=== PATIENT | female | born 1950 | race African-American/Black ===

== ENCOUNTER → 2017-01-10 | Outpatient (CLI) | payer OTHER ==
[~2017-01-10] MED LIST: ACEBUTOLOL HCL200 MG PO; ACIDOPHILUS1 EAC2 PO; ADULT LOW DOSE81 MG PO; ADULT ONE DAI200 MCG PO; ALDACTONE25 MG PO; ALLERGY CREAM30 G1 TP; ALPRAZOLAM 0.50.5 M1 PO; ALVESCO6.1; ALVESCO6.1 INH; AMARYL1 MG PO; AMARYL2 MG PO; AMITIZA 24 MCG24 MC1 PO; AMITRIPTYLINE H10 M1 PO; AMITRIPTYLINE H25 M2 PO; ANTIVERT25 MG PO; APAP500 PO; ATORVASTATIN CA80 MG PO; AZITHROMYCIN 2250 MG PO; BACLOFEN 10MG T10 M1 PO; BACTRIM DS TAB1 EACH PO; BENADRYL25 MG PO; BUTORPHANOLNS NASAL; CELEXA40 MG PO; CIPRO250 MG PO; CIPROFLOXACIN500 M1 PO; CIPROFLOXACIN500 M3 PO; CITRATE OF MAG296 ML PO; CLARITIN10 M2 PO; COCONUT OIL1000 MG PO; COLACE 100 MG100 MG; COLACE 100 MG100 MG PO; COLACE100 MG PO; COMPAZINE10 MG PO; CYMBALTA60 MG; CYMBALTA60 MG PO; DAZIDOX10 MG PO; DIGESTIVE ENZY1 EAC3 PO; DILAUDID2 M1 PO; DOMPERIDONE; DOMPERIDONE PO; DOXYCYCLINE 10100 M1 PO; DOXYCYCLINE 10100 MG; EFFIENT10 MG PO; ENDOCET 10-3251 EACH PO; ENDOCET 7.5-501 EACH PO; ENDUR-ACIN250 MG PO; ERYPED 200200 MG/51 PO; ERYTHROMYCIN250 MG PO; ESCITALOPRAM OX10 MG PO; FIBER LAX625 MG PO; FIBER0.52 GM PO; FLAGYL 250 MG250 MG PO; FLAGYL500 M1 PO; FLAGYL500 MG PO; FLEXERIL; FLEXERIL PO; FLONASE 0.05%50 MCG; FLONASE 0.05%50 MCG NASAL; FLORINEF ACETA0.1 MG PO; FUROSEMIDE 20 M20 M1 PO; GRALISE600 MG PO; HUMULIN N100 UNIT/3; HYDROCHLOROTH12.5 MG PO; HYDROCHLOROTHIA25 M1 PO; HYDROCODON-ACE1 EAC7 PO; HYDROCODONE-AP1 EAC6 PO; HYDROCODONE-APA1 TA1; K-DUR 20 MEQ T20 MEQ PO; K-DUR10 ME1 PO; KLOR-CON 1010 MEQ PO; KLOR-CON20 MEQ PO; LASIX 20 MG TAB20 MG PO; LEVAQUIN 500 M500 M2 PO; LEVOTHYROXIN0.137 M1 PO; LEVOTHYROXINE 0.15MG PO; LEVOXYL137 MCG PO; LEVOXYL175 MCG PO; LEXAPRO 10 MG T10 M1 PO; LEXAPRO 10 MG T10 MG PO; LINZESS145 MCG; LINZESS290 MCG PO; LIORESAL 10 MG10 MG PO; LIPITOR10 MG PO; LIPITOR80 MG PO; LO-DOSE ASPIRIN81 M1 PO; LORATIDINE 10 M10 M1 PO; MAGOX 400400 MG; MECLIZINE 25 MG25 M1 PO; MECLIZINE HCL12.5 MG PO; MECLIZINE HCL25 M1 PO; MEDROLDOSEPACK PO; MELATONIN3 MG PO; METHADONE HCL 110 M1 PO; MIRALAX255 GM PO; MOBIC7.5 M1 PO; MUCINEX600 MG PO; MYLANTA 12 OZ355 M1 PO; NABUMETONE 500500 M1 PO; NAC600 MG PO; NASACORT10.8 ML NASAL; NEFAZODONE HCL PO; NEFAZODONE HCL200 MG PO; NEFAZODONE HCL250 MG PO; NEFAZODONE HCL50 MG PO; NEFAZODONE PO; NEURONTIN600 MG PO; NEXIUM40 MG PO; NIACIN SR 250250 MG PO; NIACIN250 M1 PO; NITROGLYCERIN0.4 MG SUBLING; NORCO 5-325 TA1 EACH PO; NORFLEX100 MG PO; NOVOLIN N100 UNIT/3 SUBQ; OMNARIS NS; ONDANSETRON HCL4 M2 PO; OXYCODON-ACETA1 EAC1 PO; OXYCODONE-ACET1 EAC2 PO; OXYCODONE-APAP1 EAC6 PO; OXYCONTIN CR 1010 M1 PO; PERCOCET 10-321 EACH; PERCOCET 10-321 EACH PO; PERCOCET 5-3251 EACH PO; PERCOCET 7.5-31 EACH PO; PERCOCET 7.5-51 EACH PO; PHENERGAN 25 MG25 M1 PO; PHENERGAN 25 MG25 MG PO; PHENERGAN25 M2 RC; PHENERGAN50 MG RC; PRAVACHOL40 MG PO; PREDNISONE 10 M10 MG; PREDNISONE 20 M20 M1 PO; PRENATABS OBN1 EACH PO; PRENATAL PO; PRILOSEC 20 MG20 MG PO; PRILOSEC40 MG PO; PROAIR HFA8.5 GM INH; PROBIOTIC1 EAC1; PROBIOTIC1 EAC1 PO; PROBIOTIC1 EAC2 PO; PROMETHAZINE-C120 ML PO; PROTONIX40 M2 PO; PROVENTIL HFA6.7 G1; PROVENTIL HFA6.7 G1 INH; PROVENTIL17 G1 IH; REGLAN 10 MG TA10 MG PO; ROBAXIN500 MG PO; SECTRAL200 MG PO; SEROQUEL XR200 MG; SERZONE PO; SLO-NIACIN250 MG PO; SLOW-MAG64 MG PO; SUPER ENZYME C1 EACH PO; SYMBICORT160 MCG/4. INH; SYMBICORT80 MCG/4.1 INH; TAMSULOSIN HCL0.4 MG PO; TESSALON PERLE100 MG PO; TIZANIDINE HCL4 MG PO; TOPAMAX200 MG PO; TRIAMTERENE-HC1 EAC1 PO; TRIAMTERENE/HCT1 CA1 PO; VALACYCLOVIR1000 MG PO; VALIUM10 MG PO; VALIUM2 MG PO; VALIUM5 MG PO; VALTREX1000 MG; VENTOLIN HFA 1818 GM INH; VENTOLIN17 GM INH; VITAMIN B-6200 M1 PO; VITAMIN D-32000 UNIT PO; VITAMIN D1000 UNI1 PO; VITAMIN D3400 UNIT PO; VITCB500GO PO; WELLBUTRIN SR150 MG PO; XANAX 0.25 MG0.25 MG PO; XANAX 0.5 MG0.5 M1 PO; XANAX 0.5 MG0.5 MG PO; XOPENEX HF1 UDINHALE INH; XOPENEX0.31 MG/3; XYZAL5 MG PO; ZANAFLEX4 M1 PO; ZANAFLEX4 MG PO; ZANTAC 15MG/15 MG/ML PO; ZOFRAN 4 MG ORAL4 M1 DIS; ZOFRAN ODT4 MG PO; ZOFRAN4 MG PO; ZYPREXA5 MG PO; ZYRTEC 10 MG TA10 MG PO; ZYRTEC-D TABLE1 EAC1 PO; ZYRTEC10 M2 PO; ZYRTEC10 M3 PO; [UNRECOGNIZED DRUG - OTHER] PO; [UNRECOGNIZED DRUG - REMARK]
== END ==
LOC: RAD 14:44
DX: M54.6 Pain in thoracic spine (principal); M54.5 Low back pain

== ENCOUNTER 2017-03-14 23:26 | Emergency (ER) | payer OTHER ==
[~2017-03-14] VITALS: Ht 162.6 cm; Wt 108.4 kg
[2017-03-15 01:36] VITALS: BP 164/64
== END 2017-03-15 01:38 | disposition home or self-care (01) ==
LOC: ER 23:26
DX: M25.532 Pain in left wrist (principal); G89.29 Other chronic pain; M54.9 Dorsalgia, unspecified; F41.9 Anxiety disorder, unspecified; F32.9 Major depressive disorder, single episode, unspecified; E11.9 Type 2 diabetes mellitus without complications; E78.00 Pure hypercholesterolemia, unspecified; G47.30 Sleep apnea, unspecified; G43.909 Migraine, unspecified, not intractable, without status migrainosus; D57.3 Sickle-cell trait; K21.9 Gastro-esophageal reflux disease without esophagitis; I10 Essential (primary) hypertension; J45.909 Unspecified asthma, uncomplicated; Z90.89 Acquired absence of other organs; Z96.643 Presence of artificial hip joint, bilateral; Z90.711 Acquired absence of uterus with remaining cervical stump; Z88.8 Allergy status to other drugs, medicaments and biological substances; Z88.1 Allergy status to other antibiotic agents; Z88.6 Allergy status to analgesic agent; Z88.0 Allergy status to penicillin; Z88.5 Allergy status to narcotic agent

== ENCOUNTER → 2017-03-15 | Outpatient (CLI) | payer OTHER | LOC: RAD 15:37 | DX: Z12.31 Encounter for screening mammogram for malignant neoplasm of breast (principal) ==

== ENCOUNTER 2017-07-11 19:28 | Emergency (ER) | payer OTHER ==
[~2017-07-11] VITALS: Ht 162.6 cm; Wt 108.4 kg
[2017-07-11 19:33] VITALS: BP 149/73
[2018-02-09] MEDS ORDERED: DICLOFENAC SODI25 MG PO (04:46)
[2018-02-09] MEDS ORDERED: CO Q-10100 MG PO (04:46)
[2018-02-09] MEDS ORDERED: ANTIVERT25 MG PO (04:47)
[2018-02-09] MEDS ORDERED: BENADRYL25 MG PO (04:47)
[2018-02-09] MEDS ORDERED: ESTRADIOL 1 MG T1 M1 PO (04:47)
[2018-02-09] MEDS ORDERED: ASMANEX220 MC1 INH (04:49)
[2018-02-09] MEDS ORDERED: CENTRUM SILVER1 EAC4 PO (04:49)
[2018-02-09] MEDS ORDERED: ZOFRAN ODT4 MG PO (04:50)
[2018-02-09] MEDS ORDERED: OMEGA-31000 M1 PO (04:50)
[2018-02-09] MEDS ORDERED: PROTONIX40 M1 PO (04:54)
[2018-02-09] MEDS ORDERED: ADIPEX-P37.5 MG PO (04:54)
[2018-02-09] MEDS ORDERED: FLOMAX0.4 MG PO (04:55)
[2018-02-09] MEDS ORDERED: LYRICA 50 MG50 MG PO (04:55)
[2018-02-09] MEDS ORDERED: TOPAMAX 100 MG100 MG PO (04:56)
[2018-02-09] MEDS ORDERED: ZANAFLEX4 MG PO (04:56)
[2018-02-09] MEDS ORDERED: VITAMIN D3400 UNIT PO (04:57)
[2018-02-09] MEDS ORDERED: TURMERIC500 M2 PO (04:57)
== END 2017-07-11 20:07 | disposition home or self-care (01) ==
LOC: ER 19:28
DX: M25.532 Pain in left wrist (principal); I10 Essential (primary) hypertension; G89.29 Other chronic pain; F41.9 Anxiety disorder, unspecified; F32.9 Major depressive disorder, single episode, unspecified; E11.9 Type 2 diabetes mellitus without complications; E78.00 Pure hypercholesterolemia, unspecified; E03.9 Hypothyroidism, unspecified; R00.0 Tachycardia, unspecified; K21.9 Gastro-esophageal reflux disease without esophagitis; J45.909 Unspecified asthma, uncomplicated; Z88.0 Allergy status to penicillin; Z88.6 Allergy status to analgesic agent; Z91.048 Other nonmedicinal substance allergy status; Z88.8 Allergy status to other drugs, medicaments and biological substances

== ENCOUNTER → 2017-07-14 | Outpatient (CLI) | payer OTHER ==
[~2017-07-14] MED LIST changes: +ADIPEX-P37.5 MG PO; +ASMANEX220 MC1 INH; +CENTRUM SILVER1 EAC4 PO; +CO Q-10100 MG PO; +CULTURELLE1 EACH PO; +DICLOFENAC SODI25 MG PO; +DILAUDID 2 MG TA2 MG PO; +ESTRADIOL 1 MG T1 M1 PO; +FLAX SEED OIL1000 MG PO; +FLOMAX0.4 MG PO; +HYDROXYZINE HCL25 M1 PO; +LYRICA 50 MG50 MG PO; +OMEGA-31000 M1 PO; +PROTONIX40 M1 PO; +SYNTHROID150 MCG PO; +TOPAMAX 100 MG100 MG PO; +TURMERIC500 M2 PO
== END ==
LOC: MRI 07:05
DX: M65.832 Other synovitis and tenosynovitis, left forearm (principal); M65.822 Other synovitis and tenosynovitis, left upper arm; J45.901 Unspecified asthma with (acute) exacerbation; J44.1 Chronic obstructive pulmonary disease with (acute) exacerbation; N17.9 Acute kidney failure, unspecified; E11.9 Type 2 diabetes mellitus without complications; I10 Essential (primary) hypertension; E03.9 Hypothyroidism, unspecified; E78.5 Hyperlipidemia, unspecified; K58.9 Irritable bowel syndrome, unspecified; I95.1 Orthostatic hypotension; K21.9 Gastro-esophageal reflux disease without esophagitis; Z86.711 Personal history of pulmonary embolism

== ENCOUNTER → 2017-08-05 | Outpatient (CLI) | payer OTHER | LOC: RAD 09:24 | DX: J18.9 Pneumonia, unspecified organism (principal) ==

== ENCOUNTER 2017-09-18 04:17 | Emergency (ER) | payer OTHER ==
[~2017-09-18] VITALS: Ht 162.6 cm; Wt 99.8 kg
--- NOTE | ~2017-09-18 | EKG ---
[place] [address] [facility] 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: [facility] [place] 1950 Requested By: Gemma Lozoya Order Number: [id number] MD: Sony Bazan Measurements Intervals [place] Rate: 78 P: 46 [place]: 174 QRS: 25 QRSD: 83 T: 26 QT: 388 QTc: 442 Interpretive Statements Sinus rhythm Probable left atrial enlargement Compared to ECG 05/23/2017 01:15:40 No significant changes Electronically Signed On 09-18-2017 14:07:59 CDT by Sony Bazan [email or web address] <ELECTRONICALLY SIGNED> By: Sony Bazan MD, [facility] 09/18/17 1407 0450 0450 Sony Bazan MD, FACC /EPI
[~2017-09-18 04:17] MED LIST changes: -ADIPEX-P37.5 MG PO; -ASMANEX220 MC1 INH; -CENTRUM SILVER1 EAC4 PO; -CO Q-10100 MG PO; -CULTURELLE1 EACH PO; -DICLOFENAC SODI25 MG PO; -DILAUDID 2 MG TA2 MG PO; -ESTRADIOL 1 MG T1 M1 PO; -FLAX SEED OIL1000 MG PO; -FLOMAX0.4 MG PO; -HYDROXYZINE HCL25 M1 PO; -LYRICA 50 MG50 MG PO; -OMEGA-31000 M1 PO; -PROTONIX40 M1 PO; -SYNTHROID150 MCG PO; -TOPAMAX 100 MG100 MG PO; -TURMERIC500 M2 PO
[2017-09-18 05:13] LABS: HEMATOCRIT 32.7 % (37.0-47.0); MCH 29.6 pg (26.0-34.0); MCHC 33.5 g/dL (28.0-37.0); MCV 88.3 fL (80.0-100.0); PLATELET COUNT 206 thou/uL (150-400); RBC 3.71 mil/uL (4.20-5.00); RDW 14.6 % (10.5-14.5); WBC 5.5 thou/uL (4.0-11.0)
[2017-09-18 05:24] LABS: ANION GAP 11 mmol/L (7-16); BUN 20 mg/dL (7-18); CALCIUM 9.4 mg/dL (8.5-10.1); CHLORIDE 105 mmol/L (98-107); CO2 24 mmol/L (21-32); CREATININE 1.3 mg/dL (0.6-1.0); GLUCOSE 89 mg/dL (74-106); POTASSIUM 3.6 mmol/L (3.5-5.1); SODIUM 140 mmol/L (136-145)
[2017-09-18 05:33] LABS: TROPONIN-I < 0.04 ng/mL (<0.06)
[2017-09-18 05:33] LABS: URINE BILIRUBIN NEGATIVE (Negative); URINE BLOOD NEGATIVE (Negative); URINE CLARITY CLEAR; URINE COLOR YELLOW; URINE GLUCOSE-RANDOM* NEGATIVE (Negative); URINE KETONES NEGATIVE (Negative); URINE LEUKOCYTES NEGATIVE (Negative); URINE NITRITE NEGATIVE (Negative); URINE PROTEIN (DIPSTICK) NEGATIVE (Negative); URINE SPECIFIC GRAVITY <= 1.005 (1.005-1.035); URINE UROBILINOGEN 0.2 E.U./dl (0.2-1.0)
[2017-09-18 05:53] LABS: ABSOLUTE NEUTROPHILS 2.1 thou/uL (1.4-8.2); ANISOCYTOSIS 1+; LARGE PLATELETS RARE; MYELOCYTES 1 %
[2017-09-18 06:07] VITALS: BP 166/76
[2018-02-09] MEDS ORDERED: CO Q-10100 MG PO (04:46)
[2018-02-09] MEDS ORDERED: DICLOFENAC SODI25 MG PO (04:46)
[2018-02-09] MEDS ORDERED: ESTRADIOL 1 MG T1 M1 PO (04:47)
[2018-02-09] MEDS ORDERED: BENADRYL25 MG PO (04:47)
[2018-02-09] MEDS ORDERED: ANTIVERT25 MG PO (04:47)
[2018-02-09] MEDS ORDERED: ASMANEX220 MC1 INH (04:49)
[2018-02-09] MEDS ORDERED: CENTRUM SILVER1 EAC4 PO (04:49)
[2018-02-09] MEDS ORDERED: ZOFRAN ODT4 MG PO (04:50)
[2018-02-09] MEDS ORDERED: OMEGA-31000 M1 PO (04:50)
[2018-02-09] MEDS ORDERED: PROTONIX40 M1 PO (04:54)
[2018-02-09] MEDS ORDERED: ADIPEX-P37.5 MG PO (04:54)
[2018-02-09] MEDS ORDERED: FLOMAX0.4 MG PO (04:55)
[2018-02-09] MEDS ORDERED: LYRICA 50 MG50 MG PO (04:55)
[2018-02-09] MEDS ORDERED: ZANAFLEX4 MG PO (04:56)
[2018-02-09] MEDS ORDERED: TOPAMAX 100 MG100 MG PO (04:56)
[2018-02-09] MEDS ORDERED: TURMERIC500 M2 PO (04:57)
[2018-02-09] MEDS ORDERED: VITAMIN D3400 UNIT PO (04:57)
== END 2017-09-18 06:08 | disposition home or self-care (01) ==
LOC: ER 04:17
PROVIDERS: Emergency Medicine
DX: G89.29 Other chronic pain (principal); M54.5 Low back pain; R60.9 Edema, unspecified; F41.9 Anxiety disorder, unspecified; F32.9 Major depressive disorder, single episode, unspecified; E78.00 Pure hypercholesterolemia, unspecified; G47.30 Sleep apnea, unspecified; E03.9 Hypothyroidism, unspecified; K21.9 Gastro-esophageal reflux disease without esophagitis; I10 Essential (primary) hypertension; E11.9 Type 2 diabetes mellitus without complications; J44.9 Chronic obstructive pulmonary disease, unspecified; Z95.5 Presence of coronary angioplasty implant and graft; Z88.6 Allergy status to analgesic agent; Z88.0 Allergy status to penicillin; Z88.1 Allergy status to other antibiotic agents; Z88.8 Allergy status to other drugs, medicaments and biological substances; Z79.4 Long term (current) use of insulin

== ENCOUNTER → 2018-03-21 | Outpatient (CLI) | payer OTHER ==
[~2018-03-21] MED LIST changes: +ADIPEX-P37.5 MG PO; +ASMANEX220 MC1 INH; +CENTRUM SILVER1 EAC4 PO; +CO Q-10100 MG PO; +CULTURELLE1 EACH PO; +DICLOFENAC SODI25 MG PO; +DILAUDID 2 MG TA2 MG PO; +ESTRADIOL 1 MG T1 M1 PO; +FLAX SEED OIL1000 MG PO; +FLOMAX0.4 MG PO; +HYDROXYZINE HCL25 M1 PO; +LYRICA 50 MG50 MG PO; +OMEGA-31000 M1 PO; +PROTONIX40 M1 PO; +SYNTHROID150 MCG PO; +TOPAMAX 100 MG100 MG PO; +TURMERIC500 M2 PO
== END ==
LOC: RAD 10:37
DX: M25.532 Pain in left wrist (principal); M79.89 Other specified soft tissue disorders; R06.00 Dyspnea, unspecified; E11.9 Type 2 diabetes mellitus without complications; E03.9 Hypothyroidism, unspecified; K21.9 Gastro-esophageal reflux disease without esophagitis; I10 Essential (primary) hypertension; J44.9 Chronic obstructive pulmonary disease, unspecified; G47.30 Sleep apnea, unspecified; E78.5 Hyperlipidemia, unspecified; G43.909 Migraine, unspecified, not intractable, without status migrainosus

== ENCOUNTER 2018-03-31 21:44 | Emergency (ER) | payer OTHER ==
[~2018-03-31] VITALS: Ht 162.6 cm; Wt 105.7 kg
--- NOTE | ~2018-03-31 | EKG ---
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
[~2018-03-31 21:44] MED LIST changes: -CULTURELLE1 EACH PO; -DILAUDID 2 MG TA2 MG PO; -FLAX SEED OIL1000 MG PO; -HYDROXYZINE HCL25 M1 PO; -SYNTHROID150 MCG PO
[2018-03-31] MEDS ORDERED: DILAUDID 2 MG TA2 MG PO (21:53)
[2018-03-31] MEDS ORDERED: HYDROXYZINE HCL25 M1 PO (21:54)
[2018-03-31] MEDS ORDERED: CULTURELLE1 EACH PO (21:55)
[2018-03-31] MEDS ORDERED: SYNTHROID150 MCG PO (21:56)
[2018-03-31] MEDS ORDERED: ONDANSETRON HCL4 M2 PO (21:57)
[2018-03-31] MEDS ORDERED: FLAX SEED OIL1000 MG PO (22:00)
[2018-04-01 02:12] VITALS: BP 162/72
== END 2018-04-01 02:21 | disposition home or self-care (01) ==
LOC: ER 21:44
DX: G56.02 Carpal tunnel syndrome, left upper limb (principal); G89.29 Other chronic pain; E11.9 Type 2 diabetes mellitus without complications; E78.00 Pure hypercholesterolemia, unspecified; E03.9 Hypothyroidism, unspecified; G43.909 Migraine, unspecified, not intractable, without status migrainosus; K21.9 Gastro-esophageal reflux disease without esophagitis; I10 Essential (primary) hypertension; J44.9 Chronic obstructive pulmonary disease, unspecified; Z96.643 Presence of artificial hip joint, bilateral; Z88.0 Allergy status to penicillin; Z88.1 Allergy status to other antibiotic agents; Z88.5 Allergy status to narcotic agent; Z88.6 Allergy status to analgesic agent; Z88.8 Allergy status to other drugs, medicaments and biological substances; Z79.899 Other long term (current) drug therapy

== ENCOUNTER → 2018-05-01 | Outpatient (CLI) | payer OTHER ==
[~2018-05-01] MED LIST changes: +CULTURELLE1 EACH PO; +DILAUDID 2 MG TA2 MG PO; +FLAX SEED OIL1000 MG PO; +HYDROXYZINE HCL25 M1 PO; +SYNTHROID150 MCG PO
== END ==
LOC: RAD 14:01
DX: Z12.31 Encounter for screening mammogram for malignant neoplasm of breast (principal)

== ENCOUNTER → 2018-05-05 | Outpatient (CLI) | payer OTHER ==
--- NOTE | ~2018-05-05 | SLE ---
[facility] [place] [address] POLYSOMNOGRAPHY STUDY Name: TIMOTEO LOCKWOOD Room #: REG [facility]#: [id number] Admission: 05/05/18 Attend Phys: Ivan Levin MD Discharge: Date of : 52 Report #: [id number] THIS REPORT FOR: //name// CC: Ivan Vargas DATE OF SERVICE: 05/06/2018 ATTENDING PHYSICIAN: Dr. Lance Cyr. The patient is 67 years old who weighs 236 pounds and 64 inches tall. The patient's BMI was 40.5. The patient has a history of sleep apnea, which was moderate at an AHI of 25 per hour, based on previous sleep study in 2014. The patient had a CPAP titration study and at pressure of 12 cm water, the patient's AHI was 10.8 per hour. The patient was recommended to be on AutoPAP at a pressure of 6-14. Another titration study was ordered to assess the efficacy of current pressure. The patient's Aguada score was 10. During the night study, the patient spent 428 minutes in bed and slept for 333 minutes with a sleep efficiency of 78%. Sleep latency was 7 minutes with a REM latency of 152 minutes. Overall, sleep architecture showed increased stage I and stage II sleep, reduced N3 sleep and reduced REM sleep. EKG monitoring revealed average heart rate of 66 beats per minute. No sustained arrhythmias were observed. No clinically significant PLMs observed. The patient was started on CPAP at a pressure of 7 cm water and titrated up to 13 cm water. At this pressure, the patient slept for 43 minutes. Supine sleep was observed, but no REM sleep seen. However, at a lower pressure of 12 cm water, the patient had a supine and REM sleep and AHI was 5 per hour. At the final pressure of 13 cm water, which would be very effective, the patient's oxygen saturation remained above 94%. It should also be noted that review of medication reveals use of Lyrica, p.r.n. Percocet, Cymbalta, Topamax, and Elavil. These medications can also contribute to sleepiness. IMPRESSION: 1. Sleep apnea diagnosed by previous sleep study. 2. No clinically significant periodic limb movements. RECOMMENDATIONS: 1. CPAP at 13 cm water completely eliminated the patient's sleep apnea and [facility] [address] [place] [address] POLYSOMNOGRAPHY STUDY Name: MANDIERODNEYIRA OROURKE Room #: REG [facility]ust[facility]#: [id number] Admission: 05/05/18 Attend Phys: Ivan Levin MD Discharge: Date of : 52 Report #: [id number] should be used on a nightly basis. 2. Follow up in 4-6 weeks to assess compliance with CPAP and to document clinical improvement. 3. Weight loss is strongly advised. 4. 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 If hypersomnia persists despite effective CPAP use, consider medication effect. 5. Caution regarding driving until the patient's hypersomnia is resolved with above recommendations. <ELECTRONICALLY SIGNED> By: Ivan Levin MD 05/08/18 0741 1527 1609 Ivan Levin MD /nt
== END ==
LOC: SLEEPLAB 11:43
DX: G47.33 Obstructive sleep apnea (adult) (pediatric) (principal); Z79.899 Other long term (current) drug therapy

== ENCOUNTER → 2018-07-05 | Outpatient (CLI) | payer OTHER ==
[2018-07-05 15:59] LABS: BE(vivo) -0.1 mmol/L (-2 to +3); HCO3 25.5 mmol/L (22.0-26.0); PCO2 45.3 mmHg (35.0-45.0); PO2 63.6 mmHg (80.0-100.0); pH 7.368 (7.360-7.450); sO2 91.6 % (92.0-98.0)
== END ==
LOC: PUL 15:00
PROVIDERS: Pediatrics
DX: R79.81 Abnormal blood-gas level (principal)

== ENCOUNTER → 2018-07-31 | Outpatient (CLI) | payer OTHER | LOC: ULTRA 11:11 | DX: N28.1 Cyst of kidney, acquired (principal) ==

== ENCOUNTER → 2018-08-02 | Outpatient (CLI) | payer OTHER ==
[2018-08-02 13:02] LABS: CREATININE 1.4 mg/dL (0.6-1.0)
== END ==
LOC: CAT 12:20
PROVIDERS: Nurse Practitioner
DX: K57.30 Diverticulosis of large intestine without perforation or abscess without bleeding (principal); K82.8 Other specified diseases of gallbladder; N28.89 Other specified disorders of kidney and ureter; I70.0 Atherosclerosis of aorta; M62.08 Separation of muscle (nontraumatic), other site

== ENCOUNTER → 2018-08-14 | Outpatient (CLI) | payer OTHER | LOC: CAT 12:56 | DX: J44.9 Chronic obstructive pulmonary disease, unspecified (principal); I25.10 Atherosclerotic heart disease of native coronary artery without angina pectoris; I70.0 Atherosclerosis of aorta; N28.1 Cyst of kidney, acquired; Z88.8 Allergy status to other drugs, medicaments and biological substances; Z88.1 Allergy status to other antibiotic agents; Z88.5 Allergy status to narcotic agent; Z88.0 Allergy status to penicillin; Z91.048 Other nonmedicinal substance allergy status ==

== ENCOUNTER → 2018-08-18 | Outpatient (CLI) | payer OTHER | END | disposition home or self-care (01) | LOC: CATH 06:34 → EDSTATUS 15:33 | DX: R05 Cough (principal); R06.00 Dyspnea, unspecified; D64.9 Anemia, unspecified; G89.29 Other chronic pain; Z88.0 Allergy status to penicillin; Z88.8 Allergy status to other drugs, medicaments and biological substances; Z79.899 Other long term (current) drug therapy; Z79.82 Long term (current) use of aspirin; Z98.890 Other specified postprocedural states | CPT/HCPCS: 62110; 62900; 70005 ==

== ENCOUNTER 2018-10-13 17:05 | Emergency (ER) | payer OTHER ==
[~2018-10-13] VITALS: Ht 162.6 cm; Wt 105.7 kg
[2018-10-13 18:17] LABS: HEMATOCRIT 36.6 % (37.0-47.0); HEMOGLOBIN 12.2 gm/dL (12.0-15.0); MCH 28.6 pg (26.0-34.0); MCHC 33.5 g/dL (28.0-37.0); MCV 85.4 fL (80.0-100.0); PLATELET COUNT 215 thou/uL (150-400); RBC 4.28 mil/uL (4.20-5.00); RDW 14.4 % (10.5-14.5); WBC 6.4 thou/uL (4.0-11.0)
[2018-10-13 18:29] LABS: ANION GAP 12 mmol/L (7-16); BUN 19 mg/dL (7-18); CALCIUM 9.1 mg/dL (8.5-10.1); CHLORIDE 100 mmol/L (98-107); CO2 25 mmol/L (21-32); CREATININE 1.5 mg/dL (0.6-1.0); GLUCOSE 131 mg/dL (74-106); POTASSIUM 3.4 mmol/L (3.5-5.1); SODIUM 137 mmol/L (136-145)
[2018-10-13 18:38] LABS: ALBUMIN 3.7 g/dL (3.4-5.0); SGOT 26 U/L (15-37); SGPT 33 U/L (30-65); TOTAL BILIRUBIN 0.3 mg/dL (<0.1-1.0); TOTAL PROTEIN 7.5 g/dL (6.4-8.2); TROPONIN-I <0.06 ng/mL (<0.06)
[2018-10-13 19:10] LABS: ABSOLUTE NEUTROPHILS 3.6 thou/uL (1.4-8.2)
[2018-10-13 19:14] LABS: URINE BILIRUBIN NEGATIVE (Negative); URINE BLOOD NEGATIVE (Negative); URINE CLARITY CLEAR; URINE COLOR YELLOW; URINE GLUCOSE-RANDOM* NEGATIVE (Negative); URINE KETONES NEGATIVE (Negative); URINE LEUKOCYTES-REFLEX NEGATIVE (Negative); URINE NITRITE-REFLEX NEGATIVE (Negative); URINE PROTEIN (DIPSTICK) NEGATIVE (Negative); URINE SPECIFIC GRAVITY <= 1.005 (1.005-1.035); URINE UROBILINOGEN 0.2 E.U./dl (0.2-1.0)
[2018-10-13 20:12] LABS: APTT 29.6 Seconds (24.5-32.8); PROTIME 10.1 Seconds (9.3-11.4)
[2018-10-13] MEDS ORDERED: PREDNISONE 20 M20 MG PO (21:33)
[2018-10-13] MEDS ORDERED: DOXYCYCLINE 10100 MG PO (21:33)
[2018-10-13 22:14] VITALS: BP 170/71
--- NOTE | 2018-10-14 09:02 | EKG ---
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[place] : 1950 Requested By: Daniel Tipton Order Number: [id number] MD: Charles Harrison Measurements Intervals [place] Rate: 80 P: 32 MT: 154 QRS: 3 QRSD: 82 T: 28 QT: 383 QTc: 442 Interpretive Statements Sinus rhythm Probable left atrial enlargement Compared to ECG 03/31/2018 22:43:17 No significant changes Electronically Signed On 10-14-2018 9:02:00 CDT by Charles Harrison [email or web address] ��������������������������������������������� <ELECTRONICALLY SIGNED> ���������������������������������������� By: Charles Harrison MD ��������������������������������������������� 10/14/18 0902 1807 1807 Charles Harrison MD /EPI
== END 2018-10-13 22:14 | disposition home or self-care (01) ==
LOC: ER 17:05
PROVIDERS: Emergency Medicine; Physician Assistant
DX: I95.1 Orthostatic hypotension (principal); J20.9 Acute bronchitis, unspecified; J44.9 Chronic obstructive pulmonary disease, unspecified; R51 Headache; I12.9 Hypertensive chronic kidney disease with stage 1 through stage 4 chronic kidney disease, or unspecified chronic kidney disease; E11.22 Type 2 diabetes mellitus with diabetic chronic kidney disease; N18.9 Chronic kidney disease, unspecified; M54.9 Dorsalgia, unspecified; G89.29 Other chronic pain; Z96.643 Presence of artificial hip joint, bilateral; E78.00 Pure hypercholesterolemia, unspecified; E03.9 Hypothyroidism, unspecified; K21.9 Gastro-esophageal reflux disease without esophagitis; Z95.5 Presence of coronary angioplasty implant and graft; Z90.710 Acquired absence of both cervix and uterus; Z98.890 Other specified postprocedural states; Z88.5 Allergy status to narcotic agent; Z88.0 Allergy status to penicillin; Z88.1 Allergy status to other antibiotic agents; Z88.8 Allergy status to other drugs, medicaments and biological substances

== ENCOUNTER 2018-10-17 11:41 | Emergency (ER) | payer OTHER ==
[~2018-10-17] VITALS: Ht 162.6 cm; Wt 105.7 kg
[~2018-10-17 11:41] MED LIST changes: +DOXYCYCLINE 10100 MG PO; +PREDNISONE 20 M20 MG PO
[2018-10-17 12:30] LABS: BASOPHILS 0.7 % (0.0-2.0); EOSINOPHILS 2.8 % (0.0-3.0); HEMATOCRIT 39.3 % (37.0-47.0); HEMOGLOBIN 13.3 gm/dL (12.0-15.0); LYMPHOCYTES 25.4 % (24.0-44.0); MCH 28.9 pg (26.0-34.0); MCHC 33.8 g/dL (28.0-37.0); MCV 85.7 fL (80.0-100.0); MONOCYTES 11.8 % (1.0-8.0); PLATELET COUNT 198 thou/uL (150-400); POLYS 59.3 % (36.0-66.0); RBC 4.59 mil/uL (4.20-5.00); RDW 14.5 % (10.5-14.5); WBC 6.7 thou/uL (4.0-11.0)
[2018-10-17 12:37] LABS: ANION GAP 11 mmol/L (7-16); BUN 20 mg/dL (7-18); CALCIUM 9.4 mg/dL (8.5-10.1); CHLORIDE 103 mmol/L (98-107); CO2 25 mmol/L (21-32); CREATININE 1.4 mg/dL (0.6-1.0); GLUCOSE 93 mg/dL (74-106); POTASSIUM 3.8 mmol/L (3.5-5.1); SODIUM 139 mmol/L (136-145)
[2018-10-17 12:48] LABS: SGOT 27 U/L (15-37); SGPT 41 U/L (30-65); TOTAL BILIRUBIN 0.5 mg/dL (<0.1-1.0); TOTAL PROTEIN 8.2 g/dL (6.4-8.2); TROPONIN-I <0.06 ng/mL (<0.06)
[2018-10-17] MEDS ORDERED: PROMETH-CODEIN 65 ML PO (14:03)
[2018-10-17 15:24] VITALS: BP 136/58
--- NOTE | 2018-10-17 17:14 | EKG ---
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1950 Requested By: Cl Maldonado Order Number: [id number] MD: Sony Bazan Measurements Intervals [place] Rate: 88 P: 29 [place]: 144 QRS: 7 QRSD: 75 T: 15 QT: 350 QTc: 424 Interpretive Statements Sinus rhythm Poor R wave progression Compared to ECG 10/13/2018 18:07:35 No significant changes Electronically Signed On 10-17-2018 17:14:44 CDT by Sony Bazan [email or web address] ��������������������������������������������� <ELECTRONICALLY SIGNED> ���������������������������������������� By: Sony Bazan MD, [facility] ��������������������������������������������� 10/17/18 1714 1146 1146 Sony Bazan MD, FACC /EPI
== END 2018-10-17 15:32 | disposition home or self-care (01) ==
LOC: ER 11:41
PROVIDERS: Physician Assistant
DX: I12.9 Hypertensive chronic kidney disease with stage 1 through stage 4 chronic kidney disease, or unspecified chronic kidney disease (principal); E11.22 Type 2 diabetes mellitus with diabetic chronic kidney disease; N18.9 Chronic kidney disease, unspecified; J40 Bronchitis, not specified as acute or chronic; F41.9 Anxiety disorder, unspecified; F32.9 Major depressive disorder, single episode, unspecified; E78.00 Pure hypercholesterolemia, unspecified; G47.30 Sleep apnea, unspecified; E03.9 Hypothyroidism, unspecified; G43.909 Migraine, unspecified, not intractable, without status migrainosus; J44.9 Chronic obstructive pulmonary disease, unspecified; K21.9 Gastro-esophageal reflux disease without esophagitis; Z90.711 Acquired absence of uterus with remaining cervical stump; Z88.1 Allergy status to other antibiotic agents; Z88.0 Allergy status to penicillin; Z88.5 Allergy status to narcotic agent; Z85.528 Personal history of other malignant neoplasm of kidney; Z88.8 Allergy status to other drugs, medicaments and biological substances; Z98.890 Other specified postprocedural states; Z96.643 Presence of artificial hip joint, bilateral; Z88.6 Allergy status to analgesic agent

== ENCOUNTER 2018-11-05 21:29 | Emergency (ER) | payer OTHER ==
[~2018-11-05] VITALS: Ht 162.6 cm; Wt 101.2 kg
[~2018-11-05 21:29] MED LIST changes: +PROMETH-CODEIN 65 ML PO
[2018-11-05] MEDS ORDERED: TORSEMIDE10 MG PO (22:15)
[2018-11-05 22:38] LABS: URINE BILIRUBIN NEGATIVE (Negative); URINE BLOOD NEGATIVE (Negative); URINE CLARITY CLEAR; URINE COLOR YELLOW; URINE GLUCOSE-RANDOM* NEGATIVE (Negative); URINE KETONES NEGATIVE (Negative); URINE LEUKOCYTES-REFLEX NEGATIVE (Negative); URINE NITRITE-REFLEX NEGATIVE (Negative); URINE PROTEIN (DIPSTICK) NEGATIVE (Negative); URINE SPECIFIC GRAVITY 1.015 (1.005-1.035); URINE UROBILINOGEN 0.2 E.U./dl (0.2-1.0)
[2018-11-06 01:19] LABS: ABSOLUTE NEUTROPHILS 2.4 thou/uL (1.4-8.2); BASOPHILS 0.5 % (0.0-2.0); EOSINOPHILS 3.4 % (0.0-3.0); HEMOGLOBIN 11.2 gm/dL (12.0-15.0); LYMPHOCYTES 37.1 % (24.0-44.0); MCH 28.5 pg (26.0-34.0); MCV 86.6 fL (80.0-100.0); MONOCYTES 11.6 % (1.0-8.0); PLATELET COUNT 158 thou/uL (150-400); POLYS 47.4 % (36.0-66.0); RBC 3.93 mil/uL (4.20-5.00); RDW 14.9 % (10.5-14.5)
[2018-11-06 01:27] LABS: CALCIUM 9.2 mg/dL (8.5-10.1); CREATININE 1.5 mg/dL (0.6-1.0)
[2018-11-06 01:33] LABS: ALBUMIN 3.5 g/dL (3.4-5.0); TOTAL BILIRUBIN 0.2 mg/dL (<0.1-1.0); TROPONIN-I <0.06 ng/mL (<0.06)
[2018-11-06 02:00] VITALS: BP 122/61
== END 2018-11-06 02:02 | disposition home or self-care (01) ==
LOC: ER 21:29
PROVIDERS: Emergency Medicine; Nurse Practitioner Family
DX: R60.0 Localized edema (principal); I11.0 Hypertensive heart disease with heart failure; I50.9 Heart failure, unspecified; G89.29 Other chronic pain; M54.9 Dorsalgia, unspecified; F41.9 Anxiety disorder, unspecified; F32.9 Major depressive disorder, single episode, unspecified; E11.9 Type 2 diabetes mellitus without complications; E78.00 Pure hypercholesterolemia, unspecified; G47.30 Sleep apnea, unspecified; E03.9 Hypothyroidism, unspecified; J44.9 Chronic obstructive pulmonary disease, unspecified; K21.9 Gastro-esophageal reflux disease without esophagitis; G43.909 Migraine, unspecified, not intractable, without status migrainosus; Z88.0 Allergy status to penicillin; Z88.1 Allergy status to other antibiotic agents; Z88.8 Allergy status to other drugs, medicaments and biological substances; Z88.6 Allergy status to analgesic agent; Z98.890 Other specified postprocedural states; Z96.643 Presence of artificial hip joint, bilateral; Z95.5 Presence of coronary angioplasty implant and graft; Z90.711 Acquired absence of uterus with remaining cervical stump

== ENCOUNTER 2018-11-08 15:47 | Inpatient (IN) | payer OTHER ==
[~2018-11-08] VITALS: Ht 162.6 cm; Wt 112.9 kg
[2018-11-08 15:47] VITALS: BP 186/81
[~2018-11-08 15:47] MED LIST changes: +TORSEMIDE10 MG PO
[2018-11-08 17:52] LABS: BASOPHILS 0.8 % (0.0-2.0); EOSINOPHILS 3.4 % (0.0-3.0); HEMATOCRIT 32.6 % (37.0-47.0); HEMOGLOBIN 10.9 gm/dL (12.0-15.0); LYMPHOCYTES 31.9 % (24.0-44.0); MCH 28.7 pg (26.0-34.0); MCHC 33.3 g/dL (28.0-37.0); MCV 86.2 fL (80.0-100.0); PLATELET COUNT 162 thou/uL (150-400); POLYS 51.9 % (36.0-66.0); RBC 3.78 mil/uL (4.20-5.00); RDW 14.6 % (10.5-14.5); WBC 7.8 thou/uL (4.0-11.0)
[2018-11-08 18:01] LABS: CALCIUM 8.9 mg/dL (8.5-10.1); CREATININE 1.4 mg/dL (0.6-1.0); POTASSIUM 3.5 mmol/L (3.5-5.1)
[2018-11-08 18:11] LABS: ALBUMIN 3.3 g/dL (3.4-5.0); TOTAL BILIRUBIN 0.3 mg/dL (<0.1-1.0); TOTAL PROTEIN 6.5 g/dL (6.4-8.2); TROPONIN-I 0.38 ng/mL (<0.06)
[2018-11-08 20:18] VITALS: BP 176/72
[2018-11-08 21:15] VITALS: BP 178/82
[2018-11-09 03:24] VITALS: BP 129/47
--- NOTE | 2018-11-09 05:29 | NUR ---
PT ARRIVED UNIT AT ABOUT 2245. PT A/OX4, VITAL SIGNS STABLE. BLOOD PRESSURE IN THE 170'S. PHYSICIAN NOTIFIED, ORDERS RECIEVED. ASSESSMENT CHARTED. BACK PAIN ADEQAUTELY MANAGED WITH PAIN MEDICATION. ADMISSION COMPLATED. PT RESTED WELL THROUGH THE NIGHT. CALLS APPROPRIATLY BEFORE GETTING OUT OF BED. PROGRESSING TOWARD PLAN OF CARE. WILL CONTINUE TO MONITOR.
[2018-11-09 08:00] VITALS: BP 161/53
--- NOTE | 2018-11-09 10:47 | 2DMMODE ---
[facility] [place] [address] 2 D/M-MODE ECHOCARDIOGRAM Name: LOCKWOODJONATHANBROOKS [facility] Room #: 214-P ADM IN M.R.#: [id number] ������������� Admission: 11/08/18 ������������� Attend Phys: Bryan Vargas, Discharge: ��� ������������� ��� Date of : 52 Date of Service: 11/09/18 1047 �� Report #: [id number] �������� ��������������������������������������������[id number] THIS REPORT FOR: //name// APPROVED REPORT Study performed: 11/09/2018 09:40:15 EXAM: Comprehensive 2D, Doppler, and color-flow Echocardiogram Patient Location: Bedside Room #: 214 Status: routine BSA: 2.15 HR: 73 bpm BP: 161/53 mmHg Rhythm: NSR Other Information Study Quality: Good Indications Dyspnea, palpitations, edema, elevated troponin. Hx: CAD, stent, CHF, COPD, HTN, HLP 2D Dimensions RVDd: 40.35 mm IVSd: 11.16 (7-11mm) LVOT Diam: 19.15 (18-24mm) LVDd: 42.78 mm PWd: 12.68 (7-11mm) Ascending Ao: 32.65 (22-36mm) LVDs: 28.64 (25-40mm) Aortic Root: 28.86 mm Volumes Left Atrial Volume (Systole) Single Plane 4CH: 79.28 mL Single Plane 2CH: 68.25 mL LA ESV Index: 37.00 mL/m2 Aortic Valve AoV Peak Dylan.: 1.77 m/s AO Peak Gr.: 12.47 mmHg LVOT Max P.72 mmHg LVOT Max V: 1.20 m/s CONSTANTINO Vmax: 1.95 cm2 Mitral Valve E/A Ratio: 1.3 MV Decel. Time: 205.37 ms [facility] [address] [place] [address] 2 D/M-MODE ECHOCARDIOGRAM Name: TIMOTEO LOCKWOOD Room #: 214-P [facility] IN M.R.#: [id number] ������������� Admission: 11/08/18 ������������� Attend Phys: Bryan Vargas, Discharge: ��� ������������� ��� Date of : 52 Date of Service: 11/09/18 1047 �� Report #: [id number] �������� ��������������������������������������������[id number] MV E Max Dylan.: 1.39 m/s MV A Dylan.: 1.07 m/s MV PHT: 59.56 ms IVRT: 65.74 ms Pulmonary Valve PV Peak Dylan.: 1.01 m/s PV Peak Gr.: 4.06 mmHg Pulmonary Vein P Vein S: 0.50 m/s P Vein A: 0.29 m/s P Vein D: 0.61 m/s P Vein A Dur.: 110.7 msec P Vein S/D Ratio: 0.82 Tricuspid Valve TR Peak Dylan.: 2.98 m/s RAP Estimate: 10.00 mmHg TR Peak Gr.: 35.42 mmHg PA Pressure: 45.00 mmHg Left Ventricle The left ventricle is normal size. There is normal LV segmental wall motion. Mild concentric left ventricular hypertrophy. Left ventricular systolic function is normal. LVEF is 60-65%. Moderate diastolic dysfunction is present (pseudonormal filling). Right Ventricle The right ventricle is normal size. The right ventricular systolic function is normal. Atria Left atrium is mildly dilated. The right atrium size is normal. Aortic Valve Aortic valve is trileaflet, mildly calcified. No aortic regurgitation is present. There is no aortic valvular stenosis. Mitral Valve Mild mitral annular calcification. Moderate mitral regurgitation. Tricuspid Valve The tricuspid valve is normal in structure. Mild tricuspid regurgitation. Estimated PAP is 45mmHg. Pulmonic Valve The pulmonary valve is normal in structure. Trace to mild pulmonic [address] [address] 2 D/M-MODE ECHOCARDIOGRAM Name: TIMOTEO LOCKWOOD [place]AVEN Room #: 214-P [facility] IN .R.#: [id number] ������������� Admission: 11/08/18 ������������� Attend Phys: Bryan Vargas, Discharge: ��� ������������� ��� Date of : 52 Date of Service: 11/09/18 1047 �� Report #: [id number] �������� ��������������������������������������������[id number] regurgitation. Great Vessels The aortic root is normal in size. The ascending aorta is normal in size. IVC is normal in size and collapses <50% with inspiration. Pericardium Trivial pericardial fluid noted. <Conclusion> Left ventricular systolic function is normal. There is normal LV segmental wall motion. Mild concentric left ventricular hypertrophy. LVEF is 60-65%. Moderate diastolic dysfunction Left atrium is mildly dilated. Aortic valve is trileaflet, mildly calcified. No aortic regurgitation or stenosis. Mild mitral annular calcification. Moderate mitral regurgitation. Mild tricuspid regurgitation. Estimated pulmonary artery pressur of 40-45mmHg. Trivial pericardial fluid noted. ��������������������������������������������� <ELECTRONICALLY SIGNED> ���������������������������������������� By: Sony Bazan MD, [facility] ��������������������������������������������� 11/09/18 1047 1047 1047 Sony Bazan MD, FACC /INF
[2018-11-09 12:19] VITALS: BP 160/52
[2018-11-09 16:00] VITALS: BP 164/54
--- NOTE | 2018-11-09 16:51 | EKG ---
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1950 Requested By: Heaven Garcia Order Number: [id number] MD: Jax Laguerre Measurements Intervals [place] Rate: 70 P: 54 CT: 132 QRS: 24 QRSD: 82 T: 30 QT: 394 QTc: 426 Interpretive Statements Sinus rhythm Probable left atrial enlargement Compared to ECG 10/17/2018 11:46:38 Poor R-wave progression no longer present Electronically Signed On 11-09-2018 16:51:23 CDT by Jax Laguerre [email or web address] ��������������������������������������������� <ELECTRONICALLY SIGNED> ���������������������������������������� By: Jax Laguerre MD ��������������������������������������������� 11/09/18 1651 1559 1559 Jax Laguerre MD /[facility]
[2018-11-09 18:14] VITALS: BP 164/54
--- NOTE | 2018-11-09 18:56 | NUR ---
ASSUMED CARE OF PATIENT AT 0700. PATIENT IS A&O X 4. ECHO PERFORMED AT 60-65%. PATIENT COMPLAINS OF FIBROMYALGIA PAIN WHICH IS PARTIALLY HELPED WITH OXYCODONE. PATIENT STATES THAT HER LE ARE LESS SWOLLEN AND SHE IS BREATHING WITH GREATER EASE. SHE STATES THAT SHE ALREADY MONITORS HER WEIGHT DAILY BUT WILL START TRACKING IT AND BEING IN BETTER COMMUNICATION WITH HER PCP. DR. MIRZA PUT IN DISCHARGE ORDERS. PATIENT WAS UNABLE TO GET A RIDE UNTIL 1830. IV AND TELE MONITOR WAS REMOVED. PATIENT WAS TAKEN TO THE COMM CENTER ENTRANCE VIA WHEELCHAIR AND DRIVEN HOME BY HER . PATIENT URGED TO CALL DR. MIRZA'S OFFICE TOMORROW TO MAKE A FOLLOW UP APPT IN ONE WEEK OR SOONER WITH CONCERNS.
== END 2018-11-09 06:40 | disposition home or self-care (01) | DRG 948 ==
LOC: ER 15:47 → 2N 19:33 → EROBS 19:33 → 2N 21:14
PROVIDERS: Physician Assistant; ADMIT Family Medicine
DX: R60.9 Edema, unspecified (principal); I11.0 Hypertensive heart disease with heart failure; I50.9 Heart failure, unspecified; M54.9 Dorsalgia, unspecified; G89.29 Other chronic pain; Z96.643 Presence of artificial hip joint, bilateral; F41.9 Anxiety disorder, unspecified; F32.9 Major depressive disorder, single episode, unspecified; E11.9 Type 2 diabetes mellitus without complications; E03.9 Hypothyroidism, unspecified; G43.909 Migraine, unspecified, not intractable, without status migrainosus; E78.00 Pure hypercholesterolemia, unspecified; K21.9 Gastro-esophageal reflux disease without esophagitis; M19.90 Unspecified osteoarthritis, unspecified site; J44.9 Chronic obstructive pulmonary disease, unspecified; I25.10 Atherosclerotic heart disease of native coronary artery without angina pectoris; Z95.5 Presence of coronary angioplasty implant and graft; Z98.42 Cataract extraction status, left eye; Z98.41 Cataract extraction status, right eye; Z90.711 Acquired absence of uterus with remaining cervical stump; Z88.8 Allergy status to other drugs, medicaments and biological substances; Z88.6 Allergy status to analgesic agent; Z88.1 Allergy status to other antibiotic agents; Z88.0 Allergy status to penicillin
CPT/HCPCS: 10081

== ENCOUNTER 2018-11-25 12:59 | Emergency (ER) | payer OTHER ==
[~2018-11-25] VITALS: Ht 162.6 cm; Wt 107.5 kg
[2018-11-25 13:06] VITALS: BP 160/66
[2018-11-25 13:59] LABS: URINE BILIRUBIN NEGATIVE (Negative); URINE BLOOD NEGATIVE (Negative); URINE CLARITY CLEAR; URINE COLOR YELLOW; URINE GLUCOSE-RANDOM* NEGATIVE (Negative); URINE KETONES NEGATIVE (Negative); URINE LEUKOCYTES-REFLEX NEGATIVE (Negative); URINE NITRITE-REFLEX NEGATIVE (Negative); URINE PROTEIN (DIPSTICK) NEGATIVE (Negative); URINE UROBILINOGEN 0.2 E.U./dl (0.2-1.0)
[2018-11-25 14:17] LABS: RBC 3.98 mil/uL (4.20-5.00)
[2018-11-25 14:20] LABS: HEMATOCRIT 34.4 % (37.0-47.0); HEMOGLOBIN 11.3 gm/dL (12.0-15.0); MCH 28.5 pg (26.0-34.0); MCV 86.4 fL (80.0-100.0); WBC 8.3 thou/uL (4.0-11.0)
[2018-11-25 14:24] LABS: ANION GAP 7 mmol/L (7-16); BUN 12 mg/dL (7-18); CALCIUM 9.2 mg/dL (8.5-10.1); CHLORIDE 105 mmol/L (98-107); CO2 27 mmol/L (21-32); CREATININE 1.4 mg/dL (0.6-1.0); GLUCOSE 67 mg/dL (74-106); SODIUM 139 mmol/L (136-145)
[2018-11-25 14:33] LABS: TROPONIN-I <0.06 ng/mL (<0.06)
[2018-11-25 14:44] LABS: ABSOLUTE NEUTROPHILS 3.2 thou/uL (1.4-8.2)
[2018-11-25 14:45] LABS: PLATELET COUNT 172 thou/uL (150-400)
[2018-11-25] MEDS ORDERED: MOBIC15 MG PO (15:20)
[2018-11-25] MEDS ORDERED: LIDOCAINE40 MG/1 ML SWISH&SPIT (15:56)
[2018-11-25] MEDS ORDERED: BENADRYL A12.5 MG/5 SWISH&SPIT (15:56)
--- NOTE | 2018-11-27 08:39 | EKG ---
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1950 Requested By: Jayla Leslie Order Number: [id number] MD: Jax Laguerre Measurements Intervals [place] Rate: 74 P: 33 WY: 174 QRS: 9 QRSD: 86 T: 30 QT: 399 QTc: 443 Interpretive Statements Sinus rhythm Probable left atrial enlargement Compared to ECG 11/08/2018 15:59:33 No significant changes Electronically Signed On 11-27-2018 8:38:50 CDT by Jax Laguerre [email or web address] ��������������������������������������������� <ELECTRONICALLY SIGNED> ���������������������������������������� By: Jax Laguerre MD ��������������������������������������������� 11/27/18 0838 1409 08 Jax Laguerre MD /[facility]
== END 2018-11-25 16:00 | disposition home or self-care (01) ==
LOC: ER 12:59
PROVIDERS: Emergency Medicine
DX: S66.812A Strain of other specified muscles, fascia and tendons at wrist and hand level, left hand, initial encounter (principal); S01.502A Unspecified open wound of oral cavity, initial encounter; G89.18 Other acute postprocedural pain; G89.29 Other chronic pain; M54.9 Dorsalgia, unspecified; E11.9 Type 2 diabetes mellitus without complications; F41.9 Anxiety disorder, unspecified; F32.9 Major depressive disorder, single episode, unspecified; E78.00 Pure hypercholesterolemia, unspecified; G47.30 Sleep apnea, unspecified; E03.9 Hypothyroidism, unspecified; G43.909 Migraine, unspecified, not intractable, without status migrainosus; K21.9 Gastro-esophageal reflux disease without esophagitis; J44.9 Chronic obstructive pulmonary disease, unspecified; I11.0 Hypertensive heart disease with heart failure; I50.9 Heart failure, unspecified; M19.90 Unspecified osteoarthritis, unspecified site; Z91.048 Other nonmedicinal substance allergy status; Z88.8 Allergy status to other drugs, medicaments and biological substances; Z90.89 Acquired absence of other organs; Z88.6 Allergy status to analgesic agent; Z96.643 Presence of artificial hip joint, bilateral; Z95.5 Presence of coronary angioplasty implant and graft; Z90.711 Acquired absence of uterus with remaining cervical stump; Z98.890 Other specified postprocedural states; Z88.0 Allergy status to penicillin; Z88.1 Allergy status to other antibiotic agents; Z88.5 Allergy status to narcotic agent; X58.XXXA Exposure to other specified factors, initial encounter; Y92.89 Other specified places as the place of occurrence of the external cause; Y93.89 Activity, other specified; Y99.8 Other external cause status

== ENCOUNTER 2018-12-19 09:22 | Emergency (ER) | payer OTHER ==
[~2018-12-19] VITALS: Ht 162.6 cm; Wt 101.2 kg
[~2018-12-19 09:22] MED LIST changes: +BENADRYL A12.5 MG/5 SWISH&SPIT; +LIDOCAINE40 MG/1 ML SWISH&SPIT; +MOBIC15 MG PO
[2018-12-19 09:46] VITALS: BP 130/60
[2018-12-19] MEDS ORDERED: NORFLEX100 MG PO (10:13)
== END 2018-12-19 10:25 | disposition home or self-care (01) ==
LOC: ER 09:22
DX: S16.1XXA Strain of muscle, fascia and tendon at neck level, initial encounter (principal); G89.29 Other chronic pain; M54.9 Dorsalgia, unspecified; F41.9 Anxiety disorder, unspecified; F32.9 Major depressive disorder, single episode, unspecified; E11.9 Type 2 diabetes mellitus without complications; G47.30 Sleep apnea, unspecified; E03.9 Hypothyroidism, unspecified; G43.909 Migraine, unspecified, not intractable, without status migrainosus; K21.9 Gastro-esophageal reflux disease without esophagitis; J44.9 Chronic obstructive pulmonary disease, unspecified; I11.0 Hypertensive heart disease with heart failure; I50.9 Heart failure, unspecified; Z98.890 Other specified postprocedural states; Z96.643 Presence of artificial hip joint, bilateral; Z88.5 Allergy status to narcotic agent; Z88.0 Allergy status to penicillin; Z88.1 Allergy status to other antibiotic agents; Z88.6 Allergy status to analgesic agent; Z88.8 Allergy status to other drugs, medicaments and biological substances; X58.XXXA Exposure to other specified factors, initial encounter; Y93.89 Activity, other specified; Y92.89 Other specified places as the place of occurrence of the external cause; Y99.8 Other external cause status

== ENCOUNTER → 2019-02-23 | Outpatient (CLI) | payer OTHER | LOC: MRI 12:25 | DX: M47.816 Spondylosis without myelopathy or radiculopathy, lumbar region (principal); M51.37 Other intervertebral disc degeneration, lumbosacral region; M43.26 Fusion of spine, lumbar region; N28.9 Disorder of kidney and ureter, unspecified ==

== ENCOUNTER → 2019-03-13 | Outpatient (CLI) | payer OTHER | LOC: ULTRA 03-09 09:26 | DX: N28.1 Cyst of kidney, acquired (principal) ==

== ENCOUNTER 2019-03-15 16:12 | Emergency (ER) | payer OTHER ==
[~2019-03-15] VITALS: Ht 162.6 cm; Wt 89.8 kg
[2019-03-15 16:58] LABS: URINE BILIRUBIN NEGATIVE (Negative); URINE BLOOD NEGATIVE (Negative); URINE CLARITY CLEAR; URINE COLOR YELLOW; URINE GLUCOSE-RANDOM* NEGATIVE (Negative); URINE KETONES NEGATIVE (Negative); URINE LEUKOCYTES-REFLEX NEGATIVE (Negative); URINE NITRITE-REFLEX NEGATIVE (Negative); URINE PROTEIN (DIPSTICK) NEGATIVE (Negative); URINE SPECIFIC GRAVITY <= 1.005 (1.005-1.035); URINE UROBILINOGEN 0.2 E.U./dl (0.2-1.0)
[2019-03-15 18:50] LABS: HEMATOCRIT 35.1 % (37.0-47.0); HEMOGLOBIN 11.5 gm/dL (12.0-15.0); MCH 28.8 pg (26.0-34.0); MCHC 32.6 g/dL (28.0-37.0); MCV 88.4 fL (80.0-100.0); RBC 3.97 mil/uL (4.20-5.00); WBC 6.5 thou/uL (4.0-11.0)
[2019-03-15 19:08] LABS: ANION GAP 8 mmol/L (7-16); BUN 21 mg/dL (7-18); CHLORIDE 105 mmol/L (98-107); CO2 29 mmol/L (21-32); CREATININE 1.5 mg/dL (0.6-1.0); GLUCOSE 74 mg/dL (74-106); POTASSIUM 3.7 mmol/L (3.5-5.1); SODIUM 142 mmol/L (136-145)
[2019-03-15 19:13] LABS: ALBUMIN 3.6 g/dL (3.4-5.0); LIPASE 208 U/L (73-393); SGOT 28 U/L (15-37); SGPT 28 U/L (30-65); TOTAL BILIRUBIN 0.3 mg/dL (<0.1-1.0); TOTAL PROTEIN 7.4 g/dL (6.4-8.2); TROPONIN-I <0.06 ng/mL (<0.06)
[2019-03-15 20:30] VITALS: BP 158/62
--- NOTE | 2019-03-16 17:23 | EKG ---
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: : 1950 Requested By: Gloria Frost Order Number: [id number] MD: Sony Bazan Measurements Intervals [place] Rate: 63 P: 22 NM: 170 QRS: -5 QRSD: 81 T: 21 QT: 429 QTc: 440 Interpretive Statements Sinus rhythm Poor R wave progression Compared to ECG 12/29/2018 02:28:54 No significant changes Electronically Signed On 03-16-2019 17:23:35 CDT by Sony Bazan [email or web address] ��������������������������������������������� <ELECTRONICALLY SIGNED> ���������������������������������������� By: Sony Bazan MD, [facility] ��������������������������������������������� 03/16/19 1723 1750 1750 Sony Bazan MD, FACC /EPI
== END 2019-03-15 20:45 | disposition home or self-care (01) ==
LOC: ER 16:12
PROVIDERS: Emergency Medicine Emergency Medical Services
DX: G89.29 Other chronic pain (principal); M54.9 Dorsalgia, unspecified; E11.9 Type 2 diabetes mellitus without complications; I11.0 Hypertensive heart disease with heart failure; I50.9 Heart failure, unspecified; K21.9 Gastro-esophageal reflux disease without esophagitis; J44.9 Chronic obstructive pulmonary disease, unspecified; G43.909 Migraine, unspecified, not intractable, without status migrainosus; G47.30 Sleep apnea, unspecified; E78.00 Pure hypercholesterolemia, unspecified; F41.9 Anxiety disorder, unspecified; F32.9 Major depressive disorder, single episode, unspecified; M43.26 Fusion of spine, lumbar region; E03.9 Hypothyroidism, unspecified; Z98.42 Cataract extraction status, left eye; Z90.711 Acquired absence of uterus with remaining cervical stump; Z95.2 Presence of prosthetic heart valve; Z96.643 Presence of artificial hip joint, bilateral; Z98.890 Other specified postprocedural states; Z91.048 Other nonmedicinal substance allergy status; Z88.6 Allergy status to analgesic agent; Z88.0 Allergy status to penicillin; Z88.5 Allergy status to narcotic agent; Z88.1 Allergy status to other antibiotic agents; Z88.8 Allergy status to other drugs, medicaments and biological substances

== ENCOUNTER → 2019-05-09 | Outpatient (CLI) | payer OTHER | LOC: ULTRA 08:25 | DX: K76.0 Fatty (change of) liver, not elsewhere classified (principal); D63.8 Anemia in other chronic diseases classified elsewhere; N18.3 Chronic kidney disease, stage 3 (moderate); N28.1 Cyst of kidney, acquired ==

== ENCOUNTER → 2019-05-21 | Outpatient (CLI) | payer OTHER ==
[2019-05-21 16:11] LABS: CREATININE 1.4 mg/dL (0.6-1.0)
== END ==
LOC: CAT 15:07
PROVIDERS: Nurse Practitioner
DX: N28.89 Other specified disorders of kidney and ureter (principal); K57.32 Diverticulitis of large intestine without perforation or abscess without bleeding; M79.642 Pain in left hand

== ENCOUNTER → 2019-06-05 | Outpatient (CLI) | payer OTHER | LOC: RAD 11:01 | DX: Z12.31 Encounter for screening mammogram for malignant neoplasm of breast (principal) ==

== ENCOUNTER 2019-07-06 12:25 | Inpatient (IN) | payer OTHER ==
[~2019-07-06] VITALS: Ht 162.6 cm; Wt 116.6 kg
[2019-07-06 13:22] VITALS: BP 168/80
[2019-07-06 15:27] VITALS: BP 162/74
[2019-07-06 16:08] LABS: CALCIUM 9.1 mg/dL (8.5-10.1); CREATININE 1.4 mg/dL (0.6-1.0); POTASSIUM 3.5 mmol/L (3.5-5.1)
--- NOTE | 2019-07-06 17:48 | NUR ---
PT STATED DR WILFRED MIRZA HER PCP. HOSPITALIST HAD ALREADY BEEN CONSULTED WHEN PT ARRIVED FROM DR GAGE'S OFFICE. DR ARAUJO NOTIFIED. ASKED TO NOTIFY DR MIRZA THAT HOSPILIST ARE TRANSFERING CARE TO DR MIRZA, AND THEY HAVE SEEN THE PT TODAY. ADM ORDERS HAD ALREADY BEEN OBTAINED FROM HOSPITALIST. DR MIRZA'S OFFICE CALLED. LEFT [facility] WITH ANSWERING SERVICE AWAITING CALL BACK AT THIS TIME
--- NOTE | 2019-07-06 18:00 | NUR ---
PT DIRECT ADMIT FROM DR KOROMA'S OFFICE. A&O X4 ABLE TO MAKE NEEDS KNOWN. ADM ASSESSMENT COMPLETED BY THIS NURSE. SBA. C/O HEADACHE UPON ARRIVAL EFFECTIVELY CONTROLLED VIA PRN PAIN MED. CONT.
--- NOTE | 2019-07-06 18:02 | NUR ---
DIFFICUTY ESTABLISHING IV PT HARD STICK. IV TEAM CALLED. IV STARTED. IV ANTIBIOTICS LATE, PHARMACY NOTIFIED TO RETIME THE MEDS
--- NOTE | 2019-07-06 18:07 | NUR ---
CALL BACK FROM DR MIRZA. PHYSICIAN TAKING OVER CARE FOR THE PT FROM THE HOSPITALIST GROUP
[2019-07-06 19:06] VITALS: BP 142/67
[2019-07-06 23:43] VITALS: BP 190/77
[2019-07-07 00:50] VITALS: BP 169/83
[2019-07-07 03:34] VITALS: BP 180/75
[2019-07-07 07:30] VITALS: BP 168/70
[2019-07-07 11:30] VITALS: BP 176/66
[2019-07-07 15:24] VITALS: BP 168/69
--- NOTE | 2019-07-07 18:25 | NUR ---
PATIENT COMPLAINED THAT HER SCIATIC NERVE PAIN IS A 10/10. DR MIRZA NOTIFIED AND NEW MARYBETH FOR PAIN MED NOTED. WILL SHE IS ALERT ORIENTED X4. RESPIRATIONS ARE NON LABORED. CONT ON BREATING TXS. SHE IS NOW SLEEPING. WILL CONT WITH PLAN OF CARE
[2019-07-07 20:59] VITALS: BP 138/73
[2019-07-08 05:27] VITALS: BP 140/69
--- NOTE | 2019-07-08 06:26 | NUR ---
ASSUMED CARE AT 1900. MADE SURE PT HAD A SNACK WITH HS MEDS TO AVOID NAUSEA D/T MEDS ON AN EMPTY STOMACH, BUT PT C/O NAUSEA AFTER TAKING HS MEDS, STATING DRINKING ANYTHING WHILE EATING MADE HER NAUSEATED. GAVE ZOFRAN. PT ASSISTED WITH A SPONGE BATH BY HER ; STANDING AT LENGTH IN THE BATHROOM CAUSED HER TO BE VERY TIRED/SOB AND HER HR WAS IN THE 120-130'S UNTIL SHE SAT DOWN. PT ALSO REPORTED FEELING ITCHY SO SHE WAS GIVEN A PRN HYDROXYZINE. THIS AM, PT C/O OF SEVERE MIGRAINE AND NAUSEA, GAVE PRN DILAUDID AND ZOFRAN. NO OTHER CONCERNS, WILL CONTINUE TO MONITOR.
[2019-07-08 08:06] VITALS: BP 137/70
[2019-07-08 12:02] VITALS: BP 137/73
[2019-07-08 15:53] VITALS: BP 152/63
--- NOTE | 2019-07-08 19:47 | NUR ---
Assumed care approx. 0700 this AM. Pt ALOx4 but drowsy most of the day. Pt dozed on and off most of the day. Pt switched between room air and 1-2LNC per comfort level. No SOB complaints.IV zofran given once for nausea this AM after breakfast. IV dilaudid and oxy given once for a severe migraine/sciatic/hip pain. No acute changes this shift. Pt slowly progressing toward plan of care goals.
[2019-07-08 20:00] VITALS: BP 123/57
[2019-07-09 03:45] VITALS: BP 168/82
--- NOTE | 2019-07-09 06:17 | NUR ---
ASSUMED CARE AT 1900. PT DROWSY THIS EVENING BUT AROUSEABLE. REPORTS COUGHING UP MODERATE AMOUNTS OF THIN YELLOW SECRETIONS; LUNGS ARE MORE OPEN-SOUNDING THIS SHIFT COMPARED TO PREVIOUS TWO NIGHTS, BUT ARE VERY COARSE WITH SOME CRACKLES IN THE BASES. REPORTS DECREASED SOB WITH ACTIVITY. C/O BACK PAIN WORSENING WITH COUGH, GAVE OXY WITH HS MEDS. WOKE UP DURING THE NIGHT AND C/O LEFT HIP PAIN 10/10, GAVE DOSE OF DILAUDID AND ZOFRAN. NO OTHER CONCERNS, WILL CONTINUE TO MONITOR.
[2019-07-09 07:30] VITALS: BP 137/68
[2019-07-09 15:01] VITALS: BP 129/68
--- NOTE | 2019-07-09 15:27 | NUR ---
Nutrition: pt admitted with COPD exacerbation and seen due to BMI 44, class 3 extreme obesity. PMH: COPD, JOSESITO, HTN, CAD. Weight hx indicates current weight up 8# from last october. Noted pt eating 75-100% of meals on heart healthy diet. Pt unable to voice any education needs-was falling asleep during interview. Noted possible D/C soon. RD available if needs arise. Consider low risk.
--- NOTE | 2019-07-09 15:35 | NUR ---
INITIAL ASSESSMENT: SW reviewed chart and spoke with nursing and attending physician. Pt was admitted from pulmonary office due to COPD exacerbation. Pt is on IV lasix and IV abx. Pt has cpap at bedside. SW met with pt at bedside. Introduced role of SW. Pt is alert/orientated, but very drowsy during time of SW visit. Pt reports she lives at home with her . Pt states she has a cane. Pt reports she has used HH in the past, but unsure of provider. Pt's PCP is Dr. Vargas. SW is following to assist as needed with discharge planning.
--- NOTE | 2019-07-09 17:18 | NUR ---
Pt blood glucose 46, PT ALERT AND ORIENTED. SEND PHARMACY A MESSAGE FOR DEXTROSE VIAL, NOT YET HERE, GAVE PT APPLE JUICE, PT BLOOD GLUCOSE NOW IS 80. PT EATING DINNER. WILL CONTINUE TO MONITOR.
[2019-07-09 19:18] VITALS: BP 132/65
[2019-07-10 03:46] VITALS: BP 154/77
--- NOTE | 2019-07-10 04:59 | NUR ---
PATIENT IS PROGRESSING SLOWLY IN HER CARE PLAN. VITAL SIGNS STABLE WITH PATIENT HAVING NO COMPLAINTS OF NAUSEA. PATIENT DID COMPLAIN OF PAIN IN LOWER BACK WHICH WAS TREATED APPROPRIATELY THROUGH MEDICATION AND REPOSITIONING. BREATHING STABLE ON ROOM AIR EVIDENCED BY ASSESSMENT AND SPOT OXYGENATION CHECKS. PATIENT WAS ABLE TO TOLERATE CPAP THROUGHOUT NIGHT. UP MULTIPLE TIMES WITH ASSISTANCE INCIDENT FREE. POSSIBLE DISCHARGE TO REHAB SOON. CONTINUE PLAN OF CARE.
[2019-07-10 07:40] VITALS: BP 159/83
[2019-07-10] MEDS ORDERED: COZAAR100 MG PO (12:38)
[2019-07-10] MEDS ORDERED: PREDNISONE 20 M20 M1 PO (12:39)
[2019-07-10 13:24] VITALS: BP 159/83
--- NOTE | 2019-07-10 13:46 | NUR ---
DISCHARGE ORDERS COMPLETED. PATIENT DISCHARGING TO HOME WITH HOME HEALTH SERVICES. PATIENT REFERRAL, DISCHARGE/HH ORDERS FAXED TO [facility] PER REQUEST. CALL PLACED TO [facility]. SPOKE WITH INTAKE. JANAE CARDOSO TO FACILITATE.
--- NOTE | 2019-07-10 14:56 | NUR ---
DISCHARGE NOTE: SW reviewed chart and spoke with nursing and attending physician. Pt is medically stable for discharge home today. Therapy evaluated pt. Orders written for HH services. SW met with pt at bedside to discuss discharge plan. Pt is agreeable with HH services. SW confirmed pt's home address and phone number. Options provided for HH agency. No preference voiced. inventory control planner to send referral and discharge orders/summary to [facility]. Contact info for HH placed in pt's discharge summary. Pt's family to provide transportation home. No additional SW needs identified at this time, but is available to assist should needs arise.
[2019-07-10 16:30] VITALS: BP 176/58
--- NOTE | 2019-07-10 20:02 | NUR ---
2534 pt stated she does not feel she is ready to be discharge and feels generalized weakness. Doctor kristen paged and notify and he is okay with patient not being d/c today.
[2019-07-10 20:30] VITALS: BP 140/56
[2019-07-10 22:58] VITALS: BP 139/69
--- NOTE | 2019-07-11 00:22 | NUR ---
ASSUMED CARE OF PT AT 1900. A&Ox4, COOPERATIVE. VS STABLE. C/O PAIN, RATED IT /10, MEDS GIVEN W/ SLIGHT RELIEF. ABLE TO WASH HERSELF IN THE BR. BECAME SOA AND SAT DOWN UNTIL SHE CAUGHT HER BREATH. TRANSFERRED TO MED SURG UNIT AND REPORT GIVEN FOR CARE FOR THE REST OF THIS SHIFT.
--- NOTE | 2019-07-11 04:29 | NUR ---
GOT PT A TRANSFER FROM AT 2210. PT IS A&OX4. PT IS A FALL RISK. PT HAS COMPLAINTS OF CHRONIC PAIN IN THE LOWER BACK AND THE HEAD. PT DID NOT HAVE AN IV SITE. MYSELF AND MY CHARGE NURSE WERE IN THE ROOM LOOKING FOR A GOOD VEIN AND WERE UNSUCCESSFUL. POLISHING PAD MOUNTER PLACED AN IV IN THE RIGHT HAND 22G. PT SLEEPS WITH CPAP FROM HOME. PT HAS BEEN RESTING SINCE GETTING HER MINIGHT MEDICATION. PT GO A MUSCLE RELAXER AND DILAUDED. WILL CONTINUE TO MONITOR.
[2019-07-11 09:53] VITALS: BP 144/68
--- NOTE | 2019-07-11 10:21 | NUR ---
LISA reviewed chart and spoke with nursing and attending physician. Pt did not discharge home last evening as anticipated. Pt wanting post-acute placement. LISA met with pt at bedside to discuss discharge plan. Pt requests referral to be sent to [facility], as she has been there in the past. SW explained criteria for inpt acute rehab. Pt verbalized understanding. SW left SNF list for pt in her room for review. land use planner to fax referral to [facility]. LISA is following to assist as needed with discharge planning.
--- NOTE | 2019-07-11 16:21 | NUR ---
ASSUMED CARE OF PATIENT AT 0715, PATIENT ALERT AND ORIENTED X 4. PATIENT C/O PAIN WITH HEAD/MIGRAINES, SCIATIC NERVE PAIN LEFT BUTTOCK RADIATING DOWN LEFT LEG. PATIENT RECEIVED OXYCODONE 10MG X 2 THIS SHIFT, WITH PARTIAL RELIEF. PATIENT HAS CONGESTED COUGH, WHEEZY LUNGS, SMALL AMT OF YELLOW SPUTUM NOTED, RECEIVES BREATHING TREATMENTS SCHEDULED. BLOOD SUGAR MONITORING ORDERED, LAST BS 251, SHE RECEIVED 6 UNITS AT LUNCH. DISCHARGE ORDER TO GO TO [facility], [facility], REPORT GIVEN TO MIRANDA/TAYLOR. RIGHT HAND IV, SHE RECEIVED 2 IV ANTIBIOTICS THIS AM. RIGHT IV REMOVED PRIOR TO DISCHARGE.
[2019-07-11 16:35] VITALS: BP 118/76
== END 2019-07-11 15:40 | DRG 189 ==
LOC: 3W 12:25 → 4N 07-10 22:10
PROVIDERS: ADMIT Hospitalist
PROC: 5A09357 Assistance with Respiratory Ventilation, Less than 24 Consecutive Hours, Continuous Positive Airway Pressure (ICD-10-PCS; 2019-07-08)
PROC: 5A09357 Assistance with Respiratory Ventilation, Less than 24 Consecutive Hours, Continuous Positive Airway Pressure (ICD-10-PCS; principal; 2019-07-11)
DX: J96.21 Acute and chronic respiratory failure with hypoxia (principal); J44.1 Chronic obstructive pulmonary disease with (acute) exacerbation; Z68.41 Body mass index [BMI] 40.0-44.9, adult; G47.33 Obstructive sleep apnea (adult) (pediatric); I25.10 Atherosclerotic heart disease of native coronary artery without angina pectoris; E66.01 Morbid (severe) obesity due to excess calories; M54.9 Dorsalgia, unspecified; G89.29 Other chronic pain; Z96.643 Presence of artificial hip joint, bilateral; I11.0 Hypertensive heart disease with heart failure; F41.9 Anxiety disorder, unspecified; F32.9 Major depressive disorder, single episode, unspecified; E11.9 Type 2 diabetes mellitus without complications; E78.00 Pure hypercholesterolemia, unspecified; E03.9 Hypothyroidism, unspecified; G47.30 Sleep apnea, unspecified; G43.909 Migraine, unspecified, not intractable, without status migrainosus; K21.9 Gastro-esophageal reflux disease without esophagitis; M26.609 Unspecified temporomandibular joint disorder, unspecified side; Z91.048 Other nonmedicinal substance allergy status; Z88.1 Allergy status to other antibiotic agents; Z91.041 Radiographic dye allergy status; Z90.89 Acquired absence of other organs; Z82.49 Family history of ischemic heart disease and other diseases of the circulatory system; Z82.3 Family history of stroke; Z80.1 Family history of malignant neoplasm of trachea, bronchus and lung; Z88.5 Allergy status to narcotic agent; Z88.8 Allergy status to other drugs, medicaments and biological substances; Z79.82 Long term (current) use of aspirin; Z79.891 Long term (current) use of opiate analgesic; Z79.899 Other long term (current) drug therapy; Z98.1 Arthrodesis status; Z98.42 Cataract extraction status, left eye; Z95.5 Presence of coronary angioplasty implant and graft; Z98.41 Cataract extraction status, right eye; Z90.711 Acquired absence of uterus with remaining cervical stump
CPT/HCPCS: 10091; 10779; 10879

== ENCOUNTER 2019-08-03 15:05 | Emergency (ER) | payer OTHER ==
[~2019-08-03] VITALS: Ht 160 cm; Wt 145.2 kg
[~2019-08-03 15:05] MED LIST changes: +COZAAR100 MG PO
[2019-08-03 17:08] LABS: HEMATOCRIT 35.7 % (37.0-47.0); HEMOGLOBIN 11.7 gm/dL (12.0-15.0); MCH 29.3 pg (26.0-34.0); MCHC 32.7 g/dL (28.0-37.0); MCV 89.6 fL (80.0-100.0); PLATELET COUNT 228 thou/uL (150-400); RBC 3.99 mil/uL (4.20-5.00); RDW 15.4 % (10.5-14.5); WBC 6.7 thou/uL (4.0-11.0)
[2019-08-03 17:16] LABS: APTT 30.3 Seconds (24.5-32.8); PROTIME 10.6 Seconds (9.3-11.4)
[2019-08-03 17:21] LABS: ANION GAP 8 mmol/L (7-16); BUN 25 mg/dL (7-18); CALCIUM 9.5 mg/dL (8.5-10.1); CHLORIDE 100 mmol/L (98-107); CO2 31 mmol/L (21-32); CREATININE 1.8 mg/dL (0.6-1.0); GLUCOSE 118 mg/dL (74-106); POTASSIUM 3.1 mmol/L (3.5-5.1); SODIUM 139 mmol/L (136-145)
[2019-08-03 17:27] LABS: LIPASE 121 U/L (73-393); TROPONIN-I <0.06 ng/mL (<0.06)
[2019-08-03 17:30] LABS: ALBUMIN 3.9 g/dL (3.4-5.0); SGOT 30 U/L (15-37); SGPT 38 U/L (30-65); TOTAL BILIRUBIN 0.5 mg/dL (<0.1-1.0); TOTAL PROTEIN 7.9 g/dL (6.4-8.2); TROPONIN-I <0.06 ng/mL (<0.06)
[2019-08-03 18:07] LABS: ABSOLUTE NEUTROPHILS 3.1 thou/uL (1.4-8.2)
[2019-08-03] MEDS ORDERED: ONDANSETRON ODT8 MG PO (18:36)
[2019-08-03] MEDS ORDERED: TYLENOL WITH CO1 TA1 PO (18:36)
[2019-08-03] MEDS ORDERED: MOBIC7.5 MG PO (18:36)
[2019-08-03] MEDS ORDERED: METHOCARBAMOL500 M2 PO (18:36)
[2019-08-03] MEDS ORDERED: VALIUM2 MG PO (18:36)
[2019-08-03 19:17] VITALS: BP 163/77
--- NOTE | 2019-08-08 12:32 | EKG ---
[facility] [place] [address] ELECTROCARDIOGRAM REPORT Name: TIMOTEO LOCKWOOD Room #: DEP [facility].R.#: [id number] Admission: 08/03/19 Attend Phys: Discharge: 08/03/19 Date of : 52 Report #: [id number] THIS REPORT FOR: cc: Bryan Vargas MD, Neal A. MD Lundgren,Sony Lobato MD [facility] THIS REPORT FOR: //name// [facility] ED Test Date: 2019-08-03 Test Time: 15:30:15 Pat Name: TIMOTEO LOCKWOOD Department: Room: Gender: F Office Secretary: [facility] : 1950 Requested By: Cl Maldonado Order Number: [id number] MD: Sony Bazan Measurements Intervals [place] Rate: 73 P: 38 MA: 154 QRS: 10 QRSD: 83 T: 25 QT: 385 QTc: 425 Interpretive Statements Sinus rhythm Poor R wave progression Compared to ECG 03/15/2019 17:50:45 No significant change was found Electronically Signed On 08-03-2019 17:37:24 VASCULAR TECH by Sony Bazan [email or web address] <ELECTRONICALLY SIGNED> By: Sony Bazan MD, [facility] 08/03/19 1737 1530 1530 Sony Bazan MD, [facility] /EPI
== END 2019-08-03 19:15 | disposition home or self-care (01) ==
LOC: ER 15:05
PROVIDERS: Emergency Medicine; Physician Assistant
DX: M54.6 Pain in thoracic spine (principal); R07.89 Other chest pain; E87.6 Hypokalemia; M54.30 Sciatica, unspecified side; R11.2 Nausea with vomiting, unspecified; R42 Dizziness and giddiness; I13.0 Hypertensive heart and chronic kidney disease with heart failure and stage 1 through stage 4 chronic kidney disease, or unspecified chronic kidney disease; I50.9 Heart failure, unspecified; E11.22 Type 2 diabetes mellitus with diabetic chronic kidney disease; E78.00 Pure hypercholesterolemia, unspecified; E03.9 Hypothyroidism, unspecified; D57.3 Sickle-cell trait; J44.9 Chronic obstructive pulmonary disease, unspecified; K21.9 Gastro-esophageal reflux disease without esophagitis; N18.9 Chronic kidney disease, unspecified; G47.30 Sleep apnea, unspecified; G89.29 Other chronic pain; G43.909 Migraine, unspecified, not intractable, without status migrainosus; F41.9 Anxiety disorder, unspecified; F32.9 Major depressive disorder, single episode, unspecified; Z90.49 Acquired absence of other specified parts of digestive tract; Z96.643 Presence of artificial hip joint, bilateral; Z98.890 Other specified postprocedural states; Z90.711 Acquired absence of uterus with remaining cervical stump; Z95.5 Presence of coronary angioplasty implant and graft; Z91.048 Other nonmedicinal substance allergy status; Z88.0 Allergy status to penicillin; Z88.1 Allergy status to other antibiotic agents; Z88.6 Allergy status to analgesic agent; Z88.8 Allergy status to other drugs, medicaments and biological substances

== ENCOUNTER 2019-08-07 17:24 | Inpatient (IN) | payer OTHER ==
[~2019-08-07] VITALS: Ht 162.6 cm; Wt 117.0 kg
[2019-08-07 17:24] VITALS: BP 126/73
[~2019-08-07 17:24] MED LIST changes: +METHOCARBAMOL500 M2 PO; +MOBIC7.5 MG PO; +ONDANSETRON ODT8 MG PO; +TYLENOL WITH CO1 TA1 PO
[2019-08-07 19:24] LABS: URINE BILIRUBIN NEGATIVE (Negative); URINE BLOOD NEGATIVE (Negative); URINE CLARITY CLOUDY; URINE COLOR YELLOW; URINE GLUCOSE-RANDOM* NEGATIVE (Negative); URINE KETONES NEGATIVE (Negative); URINE LEUKOCYTES-REFLEX TRACE (Negative); URINE NITRITE-REFLEX NEGATIVE (Negative); URINE PROTEIN (DIPSTICK) NEGATIVE (Negative); URINE SPECIFIC GRAVITY 1.015 (1.005-1.035); URINE UROBILINOGEN 0.2 E.U./dl (0.2-1.0)
[2019-08-07 21:25] LABS: HEMATOCRIT 36.3 % (37.0-47.0); HEMOGLOBIN 11.8 gm/dL (12.0-15.0); MCHC 32.6 g/dL (28.0-37.0); MCV 89.1 fL (80.0-100.0); PLATELET COUNT 254 thou/uL (150-400); RBC 4.08 mil/uL (4.20-5.00); RDW 15.1 % (10.5-14.5); WBC 9.1 thou/uL (4.0-11.0)
[2019-08-07 21:39] LABS: CREATININE 2.2 mg/dL (0.6-1.0); POTASSIUM 4.5 mmol/L (3.5-5.1)
[2019-08-07 21:46] LABS: ALBUMIN 3.6 g/dL (3.4-5.0); TOTAL BILIRUBIN 0.4 mg/dL (<0.1-1.0); TOTAL PROTEIN 7.6 g/dL (6.4-8.2)
[2019-08-07 22:06] LABS: ABSOLUTE NEUTROPHILS 3.5 thou/uL (1.4-8.2); PLATELET ESTIMATE NORMAL
[2019-08-07 23:59] VITALS: BP 150/68
--- NOTE | 2019-08-08 00:07 | NUR ---
ORTHOPEDIC DENTIST CALLED RECEIVING UNIT TO GIVE PT REPORT, WAS TOLD RECEIVING NURSE WAS IN THE MIDDLE OF PT CARE AND WOULD CALL BACK IN A FEW MINUTES.
--- NOTE | 2019-08-08 01:29 | NUR ---
PT ADMITTED FROM ED. PT CAME FROM HOME EMS CALLED LOW FSBS 41. EMS GAVE GLUCAGON AND ANOTHER DOSE GIVEN IN ED. FSBS NOW 81. PT REPORTS WEAKNESS SINCE DISCHARGE FROM [facility] LAST WEEK FOR BRONCHITIS. PT REPORTS ASSISTANCE AT HOME THROUGH [employer] AND HER . PT IS OBESE. LUNGS WITH WHEEZES, O2 PER NC 2L, PT USES O2 AT HOME AT . PT AMBULATES WITH A CANE. PT REPORTS CONTINUED COUGHING SINCE DISCHARGE. PT REQUESTING FOOD UPON ARRIVAL TO UNIT AND PROVIDED. PT REPORTS NOT EATING AT HOME THE LAST TWO DAYS. PT STATED SHE DID NOT UNDERSTAND WHY SHE WAS DEHYDRATED STATING SHE HAS CHF AND USUALLY HAS TO MONITOR HER FLUID INTAKE. PT REPORTS LOW FSBS ALL WEEK RANGING FROM 30 TO 50S. DENIES PAIN, REPORTS CHRONIC BACK PAIN. IVF INTACT.
[2019-08-08 03:55] VITALS: BP 105/48
[2019-08-08 07:56] VITALS: BP 131/50
[2019-08-08] MEDS ORDERED: METOLAZONE 5 MG5 MG PO (08:21)
[2019-08-08] MEDS ORDERED: LASIX 40 MG TAB40 MG PO (08:21)
[2019-08-08] MEDS ORDERED: LIPITOR 20 MG T20 M1 PO (08:21)
--- NOTE | 2019-08-08 10:50 | NUR ---
INITIAL ASSESSMENT: Received consult. SW reviewed chart and spoke with nursing and attending physician. Pt was admitted from home due to ZEINA/hyptension. Pt has planned cardiac cath procedure scheduled at [facility] next Tuesday, 06/16. Attending physician requests transfer to [facility] today. Pt with recurrent chest pain. SW placed call to [facility] transfer center and spoke with Lea. Pt info and contact info for attending physician provided. SW faxed requested clinical info for review. Awaiting call back from [facility]. Pt is aware and agreeable with transfer if accepted. SW is following to assist as needed with discharge planning.
[2019-08-08] MEDS ORDERED: NITROGLYCERIN0.4 MG SUBLING (12:01)
[2019-08-08 12:02] VITALS: BP 99/43
[2019-08-08] MEDS ORDERED: PANTOPRAZOLE SO40 M1 PO (12:02)
--- NOTE | 2019-08-08 12:34 | EKG ---
[facility] [place] [place] [address] ELECTROCARDIOGRAM REPORT Name: TIMOTEO LOCKWOOD Room #: 353-P ADM IN M.R.#: [id number] Admission: 08/07/19 Attend Phys: Bryan Vargas MD Discharge: Date of : 52 Report #: [id number] THIS REPORT FOR: cc: Bryan Vargas MD, Neal A. MD Lundgren,Sony Lobato MD [facility] ~ THIS REPORT FOR: //name// [facility] ED Test Date: 2019-08-07 Test Time: 18:50:22 Pat Name: TIMOTEO LOCKWOOD Department: Room: [facility] Gender: F Graphics Manager: LALO : 1950 Requested By: Kemar Priest Order Number: [id number] MD: Sony Bazan Measurements Intervals [place] Rate: 72 P: 41 AR: 160 QRS: 23 QRSD: 80 T: 28 QT: 394 QTc: 432 Interpretive Statements Sinus rhythm No significant abnormality Compared to ECG 08/03/2019 15:30:15 Poor R-wave progression no longer present Electronically Signed On 08-08-2019 8:53:47 PRODUCT SAFETY HEAD by Sony Bazan [email or web address] <ELECTRONICALLY SIGNED> By: Sony Bazan MD, [facility] 08/08/19 0853 1850 49 Sony Bazan MD, [facility] /EPI
--- NOTE | 2019-08-08 15:04 | NUR ---
assumed care of pt at 0700. pt aox4 in no acute distress. voicing many complaints about prior admission - deferred to risk mgmt/patient advocate. sugars well controlled. some chest pain this am - reported to physician - nitro given for good relief. vitals stable. waiting on transfer to - accepted, but waiting for bed availability. will cont to monitor.
[2019-08-08 16:12] VITALS: BP 118/56
--- NOTE | 2019-08-08 17:51 | NUR ---
PT RIGHT UPPER EXTREMITY ASSESSED FOR SKIN BREAKDOWN OR DAMAGE. PT RUE HAS NO BRUISING, NO REDNESS OR BREAKDOWN. PT HAS INDENTATION/SKIN FOLD ON MEDIAL ASPECT OF UPPER ARM JUST BELOW R ARMPIT WITH SAME APPEARANCE LEFT UPPER MEDIAL ARM. BRUISING TO R FOREARM FROM PREVIOUS IV ATTEMPTS.
== END 2019-08-08 19:15 | disposition short-term general hospital (02) | DRG 683 ==
LOC: ER 17:24 → EROBS 23:13 → 3W 08-08 00:19
PROVIDERS: Emergency Medicine; Physician Assistant; ADMIT Family Medicine
DX: N17.9 Acute kidney failure, unspecified (principal); I13.0 Hypertensive heart and chronic kidney disease with heart failure and stage 1 through stage 4 chronic kidney disease, or unspecified chronic kidney disease; E11.649 Type 2 diabetes mellitus with hypoglycemia without coma; I25.10 Atherosclerotic heart disease of native coronary artery without angina pectoris; E78.5 Hyperlipidemia, unspecified; E03.9 Hypothyroidism, unspecified; I50.9 Heart failure, unspecified; M54.9 Dorsalgia, unspecified; G89.29 Other chronic pain; Z96.643 Presence of artificial hip joint, bilateral; F32.9 Major depressive disorder, single episode, unspecified; F41.9 Anxiety disorder, unspecified; E78.00 Pure hypercholesterolemia, unspecified; G47.30 Sleep apnea, unspecified; G43.909 Migraine, unspecified, not intractable, without status migrainosus; D57.3 Sickle-cell trait; K21.9 Gastro-esophageal reflux disease without esophagitis; J44.9 Chronic obstructive pulmonary disease, unspecified; M54.30 Sciatica, unspecified side; R07.81 Pleurodynia; M79.7 Fibromyalgia; E11.22 Type 2 diabetes mellitus with diabetic chronic kidney disease; N18.9 Chronic kidney disease, unspecified; Z79.2 Long term (current) use of antibiotics; Z88.1 Allergy status to other antibiotic agents; Z88.5 Allergy status to narcotic agent; Z88.0 Allergy status to penicillin; Z88.8 Allergy status to other drugs, medicaments and biological substances; Z90.89 Acquired absence of other organs; Z98.42 Cataract extraction status, left eye; Z98.1 Arthrodesis status; Z95.5 Presence of coronary angioplasty implant and graft; Z98.41 Cataract extraction status, right eye; Z90.710 Acquired absence of both cervix and uterus; Z79.891 Long term (current) use of opiate analgesic; Z79.82 Long term (current) use of aspirin; Z79.899 Other long term (current) drug therapy

== ENCOUNTER 2019-08-24 05:08 | Inpatient (IN) | payer OTHER ==
[~2019-08-24] VITALS: Ht 162.6 cm; Wt 115.9 kg
[~2019-08-24 05:08] MED LIST changes: +LASIX 40 MG TAB40 MG PO; +LIPITOR 20 MG T20 M1 PO; +METOLAZONE 5 MG5 MG PO; +PANTOPRAZOLE SO40 M1 PO
[2019-08-24 05:10] VITALS: BP 109/54
[2019-08-24 05:48] LABS: HEMATOCRIT 31.4 % (37.0-47.0); HEMOGLOBIN 10.4 gm/dL (12.0-15.0); MCH 29.5 pg (26.0-34.0); MCHC 33.2 g/dL (28.0-37.0); MCV 88.8 fL (80.0-100.0); PLATELET COUNT 243 thou/uL (150-400); RBC 3.54 mil/uL (4.20-5.00); RDW 14.9 % (10.5-14.5); WBC 7.1 thou/uL (4.0-11.0)
[2019-08-24 06:05] LABS: ANION GAP 11 mmol/L (7-16); BUN 43 mg/dL (7-18); CALCIUM 9.1 mg/dL (8.5-10.1); CHLORIDE 96 mmol/L (98-107); CO2 30 mmol/L (21-32); CREATININE 2.3 mg/dL (0.6-1.0); GLUCOSE 140 mg/dL (74-106); MAGNESIUM 1.9 mg/dL (1.8-2.4); SODIUM 137 mmol/L (136-145); TROPONIN-I <0.06 ng/mL (<0.06)
[2019-08-24 06:11] LABS: ABSOLUTE NEUTROPHILS 3.1 thou/uL (1.4-8.2); ATYPICAL LYMPHS 3 %
[2019-08-24 06:12] LABS: POTASSIUM 2.9 mmol/L (3.5-5.1)
[2019-08-24 07:03] VITALS: BP 109/54
[2019-08-24 08:15] VITALS: BP 112/42
--- NOTE | 2019-08-24 09:47 | EKG ---
[facility] [place] [address] ELECTROCARDIOGRAM REPORT Name: TIMOTEO LOCKWOOD Room #: 202-P ADM IN M.R.#: [id number] Admission: 08/24/19 Attend Phys: Bryan Vargas MD Discharge: Date of : 52 Report #: [id number] THIS REPORT FOR: cc: Bryan Vargas MD, Neal A. MD Lundgren,Sony Lobato MD [facility] ~ THIS REPORT FOR: //name// [facility] ED Test Date: 2019-08-24 Test Time: 05:24:56 Pat Name: TIMOTEO LOCKWOOD Department: Room: [facility] Gender: F Final Cigar And Box Examiner: shayy : 1950 Requested By: Gloria Frost Order Number: [id number] MD: Sony Bazan Measurements Intervals [place] Rate: 71 P: 47 OR: 148 QRS: 22 QRSD: 93 T: 7 QT: 428 QTc: 466 Interpretive Statements Sinus rhythm Normal tracing Compared to ECG 08/07/2019 18:50:22 No significant changes Electronically Signed On 08-24-2019 9:46:23 INTERNAL AUDIT SENIOR MANAGER by Sony Bazan [email or web address] <ELECTRONICALLY SIGNED> By: Sony Bazan MD, [facility] 08/24/19 0946 Sony Bazan MD, [facility] /EPI
[2019-08-24] MEDS ORDERED: XANAX 0.5 MG0.5 M1 PO (11:16)
[2019-08-24] MEDS ORDERED: CYMBALTA30 MG PO (11:18)
[2019-08-24] MEDS ORDERED: PLAVIX 75 MG TA75 MG PO (11:18)
[2019-08-24] MEDS ORDERED: LASIX 40 MG TAB40 MG PO (11:19)
[2019-08-24] MEDS ORDERED: PERCOCET 10-321 EACH PO (11:20)
[2019-08-24] MEDS ORDERED: LYRICA100 MG PO (11:21)
[2019-08-24] MEDS ORDERED: ZANAFLEX4 M1 PO (11:22)
[2019-08-24] MEDS ORDERED: LOPRESSOR50 MG PO (11:23)
[2019-08-24] MEDS ORDERED: OMEPRAZOLE40 MG PO (11:24)
[2019-08-24] MEDS ORDERED: KLOR-CON 1010 MEQ PO (11:24)
[2019-08-24] MEDS ORDERED: TOPAMAX100 MG PO (11:25)
[2019-08-24] MEDS ORDERED: SYNTHROID100 MC1 PO (11:26)
--- NOTE | 2019-08-24 14:25 | NUR ---
Case opened to follow for dc planing. Pt known to cm from previous admissions this year. Animal Warden visited with her at bedside. She is a&ox4 and indicates that we transfered her to [facility] and she underwent heart cath with stenting. From there she was dc'd to [facility] for inpt rehab stay. She has only be home about a week from rehab and has readmitted with lt sided weakness, cp, and low K+. She report no HH currently and that she was anticipating starting outpt cardiac rehab at [facility] on [address]. she has had a hh referral from here in Jun [address] [facility] but declined services with the goal of doing outpt therapy. She feels that she gets more benefit from outpt therapy. She is receptive to the care team recommendations. 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 Her spouse is very supportive and able to drive her to appts and help with IADLS. She is hoping she will feel well enough [place] to resume her plan to do outpt cardiac rehab;however she is open to [facility] or [facility] referral if needed. She has a cpap with noc o2 per [facility] and her bathroom is setup well. Cm role role reintroduced. Will follow.
[2019-08-24 15:20] VITALS: BP 160/43
--- NOTE | 2019-08-24 17:21 | NUR ---
PT ARRIVED TO UNIT FROM ER ACCOMPANIED BY SPOUSE AT APPROX 0830. PT ALERT AND ORIENTED. VSS. DENIES SOB/CO. PT C/O LEFT AND RIGHT SIDE NUMB/TINGLING. PHYSICIAN NOTIFIED REGARDING RESUMPTION OF MEDS. C/O PAIN IN BACK. MANAGED WITH PO AND IV PAIN MEDS. PT WENT FOR MRI--SEE RESULTS. PT UP SBA, TOLERATING WELL. O2 SATS WNL ON ROOM AIR. PT WEARS CPAP AT NIGHT. PT CURRENTLY IN BED EATING DINNER. DENIES NEEDS/CONCERNS. WILL CONT TO MONITOR AND FOLLOW POC.
[2019-08-24 20:32] VITALS: BP 103/47
[2019-08-25] VITALS: BP 119/78
[2019-08-25 04:38] VITALS: BP 104/39
[2019-08-25 07:40] VITALS: BP 124/46
[2019-08-25 07:51] LABS: HEMATOCRIT 30.5 % (37.0-47.0); MCH 29.3 pg (26.0-34.0); MCHC 32.9 g/dL (28.0-37.0); MCV 89.2 fL (80.0-100.0); RBC 3.42 mil/uL (4.20-5.00); WBC 5.2 thou/uL (4.0-11.0)
[2019-08-25 08:00] LABS: CALCIUM 9.2 mg/dL (8.5-10.1); CREATININE 1.8 mg/dL (0.6-1.0); POTASSIUM 3.8 mmol/L (3.5-5.1)
--- NOTE | 2019-08-25 08:09 | NUR ---
ASSUME CARE 1900. PT/VITALS STABLE. INTERMITTENT BACK PAIN, TOLERATES ACTIVITY WELL. UP WITH WALKER. ASSESSMENT AAS CHARTED. PROGRESSING WELL WITH POC. ADFEQUATE REST NOTED WITH NO DISTRESS. A/O X 4. PLAN IS TO CONTINUE TO MONITOR LOC, WEAKNESS, AND KIDNEY FUNCTION. WILL CONTINUE TO MONITOR AND FOLLOW WITH POC
[2019-08-25 14:16] VITALS: BP 124/46
--- NOTE | 2019-08-25 14:38 | NUR ---
ASSUMMED PT CARE AT APPROXIMATELY 0700. PT A&O X4. ASSESSMENT CHARTED. FALL PRECAUTIONS IN PLACE. PT DENIES HAVING CHEST PAIN. PT DENIES HAVING SOB. PT STATED SHE HAS CHRONIC BACK PAIN. PT RECIEVED ANALGESICS. PT STATED ANALGESICS HELPED RELIEVE PAIN. PT REQUESTED HOME HEALTH SERVICES. OT STATED THAT THEY BELIEVED PT WOULD BENEFIT FROM HOME HEALTH SERVICES. SET UP HOME HEALTH SERVICES FOR PT THROUGH [employer] . 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 FAXED FACESHEET AND OT NOTES TO [employer]. FAX SENT CONFIRMED. PT AND PT'S SPOUSE RECEIVED DISHCARGE EDUCATION. PT AND PT'S SPOUSE STATED UNDERSTANDING AND DENIED HAVING FURTHER CONCERS. VITAL SIGNS STABLE. BLOOD SUGARS STABLE. IV DC. TELE DC. PT DISCHARGING HOME C HOME HEALTH. PT RECIEVING MEDICAL TRANSPORT OFF UNIT. PT COMFORTABLE. PT DENIES HAVING FURTHER CONCERNS.
--- NOTE | 2019-08-26 09:48 | NUR ---
RECEIVED ORDERS FOR P.T. EVAL AND TREAT. Pt HAD ALREADY BEEN D/C'D. PER DOCUMENTATION, Pt TO RECEIVE HHPT.
== END 2019-08-25 16:26 | disposition home health service (06) | DRG 641 ==
LOC: ER 05:08 → EROBS 07:11 → 2N 07:11
PROVIDERS: Emergency Medicine Emergency Medical Services; ADMIT Family Medicine
DX: E87.6 Hypokalemia (principal); I13.0 Hypertensive heart and chronic kidney disease with heart failure and stage 1 through stage 4 chronic kidney disease, or unspecified chronic kidney disease; E78.5 Hyperlipidemia, unspecified; E03.9 Hypothyroidism, unspecified; I50.9 Heart failure, unspecified; G89.29 Other chronic pain; M54.9 Dorsalgia, unspecified; Z96.643 Presence of artificial hip joint, bilateral; F32.9 Major depressive disorder, single episode, unspecified; F41.9 Anxiety disorder, unspecified; K21.9 Gastro-esophageal reflux disease without esophagitis; M19.90 Unspecified osteoarthritis, unspecified site; J44.9 Chronic obstructive pulmonary disease, unspecified; R20.2 Paresthesia of skin; I25.10 Atherosclerotic heart disease of native coronary artery without angina pectoris; E11.22 Type 2 diabetes mellitus with diabetic chronic kidney disease; N18.9 Chronic kidney disease, unspecified; E78.00 Pure hypercholesterolemia, unspecified; G43.909 Migraine, unspecified, not intractable, without status migrainosus; Z95.5 Presence of coronary angioplasty implant and graft; Z98.42 Cataract extraction status, left eye; Z98.41 Cataract extraction status, right eye; Z90.711 Acquired absence of uterus with remaining cervical stump; Z88.6 Allergy status to analgesic agent; Z88.1 Allergy status to other antibiotic agents; Z88.0 Allergy status to penicillin; Z88.8 Allergy status to other drugs, medicaments and biological substances; Z87.828 Personal history of other (healed) physical injury and trauma
CPT/HCPCS: 10081

== ENCOUNTER 2019-08-26 12:13 | Emergency (ER) | payer OTHER ==
[~2019-08-26] VITALS: Ht 162.6 cm; Wt 113.4 kg
[~2019-08-26 12:13] MED LIST changes: +CYMBALTA30 MG PO; +LOPRESSOR50 MG PO; +LYRICA100 MG PO; +OMEPRAZOLE40 MG PO; +PLAVIX 75 MG TA75 MG PO; +SYNTHROID100 MC1 PO; +TOPAMAX100 MG PO
--- NOTE | 2019-08-26 13:17 | EKG ---
[facility] [place] [address] ELECTROCARDIOGRAM REPORT Name: TIMOTEO LOCKWOOD Room #: [facility]..#: [id number] Admission: 08/26/19 Attend Phys: Discharge: Date of : 52 Report #: [id number] THIS REPORT FOR: cc: Bryan Vargas MD, Neal A. MD Couchonnal, Luis F. MD ~ THIS REPORT FOR: //name// [facility] ED Test Date: 2019-08-26 Test Time: 12:30:34 Pat Name: TIMOTEO LOCKWOOD Department: Room: Gender: F Audit Senior Associate: [facility] : 1950 Requested By: Kemar Priest Order Number: [id number] MD: Jax Laguerre Measurements Intervals [place] Rate: 62 P: 37 MD: 153 QRS: 17 QRSD: 83 T: 12 QT: 428 QTc: 435 Interpretive Statements Sinus rhythm Probable left atrial enlargement Baseline wander in lead(s) V1 Compared to ECG 08/24/2019 05:24:56 No significant changes Electronically Signed On 08-26-2019 13:15:53 SQUAD LEADER by Jax Laguerre [email or web address] <ELECTRONICALLY SIGNED> By: Jax Laguerre MD 08/26/19 1315 1230 1230 Jax Laguerre MD /EPI
[2019-08-26 15:05] LABS: HEMATOCRIT 32.7 % (37.0-47.0); HEMOGLOBIN 10.6 gm/dL (12.0-15.0); MCH 29.3 pg (26.0-34.0); MCHC 32.5 g/dL (28.0-37.0); MCV 90.1 fL (80.0-100.0); PLATELET COUNT 229 thou/uL (150-400); RBC 3.63 mil/uL (4.20-5.00); RDW 15.3 % (10.5-14.5); WBC 6.9 thou/uL (4.0-11.0)
[2019-08-26 15:16] LABS: ANION GAP 9 mmol/L (7-16); BUN 31 mg/dL (7-18); CALCIUM 9.8 mg/dL (8.5-10.1); CHLORIDE 97 mmol/L (98-107); CO2 32 mmol/L (21-32); CREATININE 1.8 mg/dL (0.6-1.0); GLUCOSE 97 mg/dL (74-106); POTASSIUM 3.4 mmol/L (3.5-5.1); SODIUM 138 mmol/L (136-145)
[2019-08-26 15:24] LABS: TROPONIN-I <0.06 ng/mL (<0.06)
[2019-08-26 15:28] LABS: ABSOLUTE NEUTROPHILS 2.7 thou/uL (1.4-8.2)
[2019-08-26 15:29] LABS: ANISOCYTOSIS 1+; POLYCHROMASIA OCCASIONAL
[2019-08-26 16:47] LABS: URINE BILIRUBIN NEGATIVE (Negative); URINE BLOOD NEGATIVE (Negative); URINE CLARITY CLEAR; URINE COLOR YELLOW; URINE GLUCOSE-RANDOM* NEGATIVE (Negative); URINE KETONES NEGATIVE (Negative); URINE LEUKOCYTES-REFLEX NEGATIVE (Negative); URINE NITRITE-REFLEX NEGATIVE (Negative); URINE PROTEIN (DIPSTICK) NEGATIVE (Negative); URINE UROBILINOGEN 0.2 E.U./dl (0.2-1.0)
[2019-08-26 17:55] VITALS: BP 159/61
== END 2019-08-26 17:55 | disposition home or self-care (01) ==
LOC: ER 12:13
PROVIDERS: Emergency Medicine
DX: R20.2 Paresthesia of skin (principal); E66.9 Obesity, unspecified; I11.0 Hypertensive heart disease with heart failure; I50.9 Heart failure, unspecified; K21.9 Gastro-esophageal reflux disease without esophagitis; J44.9 Chronic obstructive pulmonary disease, unspecified; G47.30 Sleep apnea, unspecified; E78.00 Pure hypercholesterolemia, unspecified; E03.9 Hypothyroidism, unspecified; Z68.41 Body mass index [BMI] 40.0-44.9, adult; Z88.5 Allergy status to narcotic agent; Z88.0 Allergy status to penicillin; Z88.8 Allergy status to other drugs, medicaments and biological substances; Z91.048 Other nonmedicinal substance allergy status; Z98.890 Other specified postprocedural states; Z90.710 Acquired absence of both cervix and uterus

== ENCOUNTER 2019-08-26 20:57 | Emergency (ER) | payer OTHER ==
[~2019-08-26] VITALS: Ht 162.6 cm; Wt 116.1 kg
[2019-08-26 23:03] VITALS: BP 130/50
== END 2019-08-26 22:56 | disposition home or self-care (01) ==
LOC: ER 20:57
DX: R53.1 Weakness (principal); I11.0 Hypertensive heart disease with heart failure; I50.9 Heart failure, unspecified; K21.9 Gastro-esophageal reflux disease without esophagitis; E03.9 Hypothyroidism, unspecified; G47.30 Sleep apnea, unspecified; E78.00 Pure hypercholesterolemia, unspecified; J44.9 Chronic obstructive pulmonary disease, unspecified; Z88.1 Allergy status to other antibiotic agents; Z88.5 Allergy status to narcotic agent; Z88.0 Allergy status to penicillin; Z88.8 Allergy status to other drugs, medicaments and biological substances; Z91.048 Other nonmedicinal substance allergy status

== ENCOUNTER → 2019-12-12 | Outpatient (CLI) | payer OTHER | LOC: MRI 09:28 | DX: S63.502A Unspecified sprain of left wrist, initial encounter (principal); M25.432 Effusion, left wrist; M19.032 Primary osteoarthritis, left wrist; X58.XXXA Exposure to other specified factors, initial encounter; Y93.89 Activity, other specified; Y92.89 Other specified places as the place of occurrence of the external cause; Y99.8 Other external cause status ==

== ENCOUNTER 2020-05-31 22:09 | Emergency (ER) | payer OTHER ==
[~2020-05-31] VITALS: Ht 162.6 cm; Wt 98.4 kg
[2020-06-01 00:28] VITALS: BP 136/38
== END 2020-06-01 00:29 | disposition home or self-care (01) ==
LOC: ER 22:09
DX: R60.0 Localized edema (principal); I11.0 Hypertensive heart disease with heart failure; I50.9 Heart failure, unspecified; F32.9 Major depressive disorder, single episode, unspecified; F41.9 Anxiety disorder, unspecified; E11.9 Type 2 diabetes mellitus without complications; E78.00 Pure hypercholesterolemia, unspecified; E03.9 Hypothyroidism, unspecified; G43.909 Migraine, unspecified, not intractable, without status migrainosus; K21.9 Gastro-esophageal reflux disease without esophagitis; M19.90 Unspecified osteoarthritis, unspecified site; J44.9 Chronic obstructive pulmonary disease, unspecified; Z90.89 Acquired absence of other organs; Z96.643 Presence of artificial hip joint, bilateral; Z79.82 Long term (current) use of aspirin; Z79.899 Other long term (current) drug therapy; Z91.048 Other nonmedicinal substance allergy status; Z88.8 Allergy status to other drugs, medicaments and biological substances; Z88.6 Allergy status to analgesic agent; Z88.0 Allergy status to penicillin; Z88.1 Allergy status to other antibiotic agents; Z88.5 Allergy status to narcotic agent

== ENCOUNTER → 2020-10-24 | Outpatient (CLI) | payer OTHER | LOC: BC 14:16 | PROVIDERS: ATTEND Family Medicine | DX: Z12.31 Encounter for screening mammogram for malignant neoplasm of breast (principal) ==

== ENCOUNTER → 2021-05-28 | Outpatient (CLI) | payer OTHER ==
[2021-05-28 16:28] LABS: ABSOLUTE NEUTROPHILS 2.5 thou/uL (1.4-8.2); BASOPHILS 0.7 % (0.0-2.0); EOSINOPHILS 4.5 % (0.0-3.0); HEMATOCRIT 35.1 % (37.0-47.0); HEMOGLOBIN 11.8 gm/dL (12.0-15.0); LYMPHOCYTES 31.9 % (24.0-44.0); MCH 28.2 pg (26.0-34.0); MCHC 33.4 g/dL (28.0-37.0); MCV 84.2 fL (80.0-100.0); MONOCYTES 14.8 % (1.0-8.0); PLATELET COUNT 280 thou/uL (150-400); POLYS 48.1 % (36.0-66.0); RBC 4.17 mil/uL (4.20-5.00); RDW 15.7 % (10.5-14.5); WBC 5.3 thou/uL (4.0-11.0)
[2021-05-28 16:35] LABS: CALCIUM 9.6 mg/dL (8.5-10.1); CREATININE 1.7 mg/dL (0.6-1.0); POTASSIUM 3.5 mmol/L (3.5-5.1)
== END ==
LOC: LAB 15:40
PROVIDERS: ATTEND Pediatrics
DX: J44.9 Chronic obstructive pulmonary disease, unspecified (principal)